=== PATIENT | male | born 2000 | race Caucasian/White ===

== ENCOUNTER 2024-04-30 13:32 | Outpatient (CLI) | payer MEDICAID, SELFPAY ==
--- NOTE | 2024-04-30 13:30 | RT.EKG_ITS ---
APPROVED REPORT Exam: Resting ECG Reason for Exam: Rapid heart rate Patient Location: O HR:116 bpm ECG Measurements Heart Rate 116 AXIS VT 98 P 84 QRSd 86 QRS 85 QT 294 T 59 QTc 409 Conclusion Sinus tachycardia...rate> 99 Normal Electrocardiogram
== END 2024-04-30 13:33 | disposition home or self-care (01) ==
LOC: DI.KIM 13:33
PROVIDERS: PCP Family Medicine; Visit Provider Family Medicine
DX: R00.0 Tachycardia, unspecified (principal)
CPT/HCPCS: 93010

== ENCOUNTER 2024-05-06 01:50 | Outpatient (RCR) | payer MEDICAID, SELFPAY ==
[2024-05-06] MEDS: Acetaminophen 325 MG TAB 650 MG PO (10:01)
[2024-05-06] MEDS: Normal Saline Flush 10 ML SYR IVP (10:02)
[2024-05-06] MEDS: Loratidine 10 MG TAB PO (10:02)
[2024-05-06 10:16] LABS: HCT 34.5 % (40.0-50.0); HGB 10.3 g/dL (13.5-17.5); MCH 24.1 pg (27.0-33.0); MCHC 29.9 % (32.0-36.0); MCV 81 fL (80-95); MPV 8.7 fL (8.0-11.0); Platelet Count 430 10^3/uL (130-400); RBC 4.27 10^6/uL (4.36-5.78); RDW 14.4 % (11.8-14.1); WBC 5.88 10^3/uL (4.4-10.8)
[2024-05-06 10:35] VITALS: BP 132/88; PULSE 116; RESP 18; TEMP 36.7; O2SAT 97
[2024-05-06 10:44] LABS: ALT 19 U/L (16-63); AST 15 U/L (15-37); Albumin 2.9 g/dL (3.4-5.0); Alkaline Phosphatase 64 U/L (46-116); Bilirubin, Direct 0.1 mg/dL (0.0-0.2); Bilirubin, Total 0.39 mg/dL (0.2-1.0); C-Reactive Protein 6.05 mg/dL (<or=0.5); Total Protein 8.6 g/dL (6.4-8.2)
[2024-05-06 10:50] VITALS: BP 116/75; PULSE 103; RESP 18; TEMP 37.1; O2SAT 100
[2024-05-06 11:05] VITALS: BP 121/75; PULSE 105; RESP 17; TEMP 36.9; O2SAT 100
[2024-05-06 11:20] VITALS: BP 111/69; PULSE 110; RESP 17; TEMP 36.9; O2SAT 100
[2024-05-06 11:50] VITALS: BP 129/75; PULSE 103; RESP 18; TEMP 36.7; O2SAT 99
[2024-05-10 01:50] LABS: Infliximab <1.0 mcg/mL
[2024-05-10 15:27] LABS: Infliximab Ab <20.0 U/mL (<50.0)
== END 2024-05-18 23:59 | disposition home or self-care (01) ==
LOC: INF 01:50
PROVIDERS: Internal Medicine Gastroenterology; PCP Family Medicine; Visit Provider Family Medicine
DX: K50.812 Crohn's disease of both small and large intestine with intestinal obstruction (principal)
CPT/HCPCS: 36415; 80076; 82397; 85027; 96365; 96366; 86140; Q5103

== ENCOUNTER 2024-06-06 02:26 | Outpatient (RCR) | payer MEDICAID, SELFPAY ==
[2024-05-19 00:15] VITALS: BP 129/75; PULSE 103; RESP 18; TEMP 36.7
[2024-06-06] VITALS (7 sets, daily range): BP systolic 102–119; BP diastolic 68–76; PULSE 102–120; RESP 16–18; TEMP 36.3–37.3; O2SAT 98–99
[2024-06-06] MEDS: Acetaminophen 325 MG TAB 650 MG PO (10:22)
[2024-06-06] MEDS: Loratidine 10 MG TAB PO (10:22)
[2024-06-06] MEDS: Normal Saline Flush 10 ML SYR IVP (10:22)
== END 2024-06-18 23:59 | disposition home or self-care (01) ==
LOC: INF 02:26
PROVIDERS: PCP Family Medicine; Visit Provider Family Medicine
DX: K50.812 Crohn's disease of both small and large intestine with intestinal obstruction (principal)
CPT/HCPCS: 96365; 96366; Q5103

== ENCOUNTER 2024-07-04 00:37 | Outpatient (RCR) | payer MEDICAID, SELFPAY ==
[2024-06-19 00:23] VITALS: BP 129/75; PULSE 103; RESP 18; TEMP 36.7
[2024-07-04] VITALS (7 sets, daily range): BP systolic 104–112; BP diastolic 67–75; PULSE 92–101; RESP 17; TEMP 36.6–37.2; O2SAT 97–98
[2024-07-04] MEDS: Acetaminophen 325 MG TAB 650 MG PO (09:53)
[2024-07-04] MEDS: Normal Saline Flush 10 ML SYR IVP (09:53)
[2024-07-04] MEDS: Loratidine 10 MG TAB PO (09:53)
== END 2024-07-19 23:59 | disposition home or self-care (01) ==
LOC: INF 00:37
PROVIDERS: PCP Family Medicine; Visit Provider Family Medicine
DX: K50.812 Crohn's disease of both small and large intestine with intestinal obstruction (principal)
CPT/HCPCS: 96365; 96366; Q5103

== ENCOUNTER 2024-08-01 03:05 | Outpatient (RCR) | payer MEDICAID, SELFPAY ==
[2024-08-01] VITALS (7 sets, daily range): BP systolic 105–119; BP diastolic 59–73; PULSE 97–128; RESP 17–18; TEMP 36.8–37.4; O2SAT 96–100
[2024-08-01] MEDS: Loratidine 10 MG TAB PO (10:02)
[2024-08-01] MEDS: Acetaminophen 325 MG TAB 650 MG PO (10:02)
[2024-08-01] MEDS: Normal Saline Flush 10 ML SYR IVP (10:31)
== END 2024-08-16 23:59 | disposition home or self-care (01) ==
LOC: INF 03:05
PROVIDERS: PCP Family Medicine; Visit Provider Family Medicine
DX: K50.812 Crohn's disease of both small and large intestine with intestinal obstruction (principal)
CPT/HCPCS: 96365; 96366; Q5103

== ENCOUNTER 2024-08-29 11:51 | Emergency (ER) | payer MEDICAID, SELFPAY ==
[2024-08-29] VITALS (33 sets, daily range): BP systolic 122–139; BP diastolic 51–81; PULSE 89–124; RESP 13–23; TEMP 36.6; O2SAT 98–100
--- NOTE | 2024-08-29 12:24 | ED.GENADUL_ITS ---
Discharge Plan Disposition Condition: Stable Discharge Details Chief Complaint: GenMedical Clinical Impression: Microcytic anemia, Crohn disease, Anemia requiring transfusions Primary Care Provider: Ramón Birmingham ED Provider: James Shah Home Meds and New Rx's Prescriptions: No Action folic acid 1 mg tablet 1 mg PO DAILY Patient Comments: Start date 12/21/2023 multivitamin [Multiple Vitamins] Tablet 1 tab PO DAILY Patient Comments: Start date 12/21/2023 ferrous sulfate 325 mg (65 mg iron) tablet 325 mg PO DAILY Patient Comments: Start Date 12/21/2023 infliximab 100 mg recon soln 562 mg IV Q8W Rx Instructions: administer over 2 hrs Discharge Instructions Instructions: Anemia Caused by Low Iron, Adult (DC) Additional Instructions: You were seen in the emergency department today for evaluation of low hemoglobin, likely due to your iron deficiency. In our department you do full physical examination performed, had no evidence of bleeding, and had laboratory studies that were otherwise quite reassuring. You received a transfusion of red blood cells, and given that you are feeling quite well it is safe for you to go home and continue your iron supplementation and follow-up with your primary care provider. They will want to recheck your labs, to ensure that your body is making more red blood cells as is appropriate. Reasons to come back to the emergency department include dizziness or loss of consciousness, shortness of breath, chest pain, or any other symptoms that cause you concern. Additionally if you identify source of bleeding such as in your stool or your vomit, your journeyman glazier may want to reschedule an endoscopy or colonoscopy to evaluate for the source. Please follow-up with your primary care provider in the next few days to discuss this visit and any symptoms that change, worsen, or persist. Thank you for allowing us to be part of your care. HPI General Mode of arrival: ambulatory . Date/Time Provider Initiated Documentation: 08/29/24 11:58 . Limitations to Documentation: no limitations . Information obtained by: patient and old records reviewed . HPI Narrative: HPI: This is a 23-year-old male patient with a past medical history significant for Crohn's disease who was sent from the infusion clinic for anemia. The cierra ent gets an influx of infusion every 8 weeks, had routine laboratory studies drawn which showed an anemia to 6.0, microcytic. For this reason he was sent to our emergency department for evaluation. The patient reports that he has had some generalized fatigue, but states that he has not had any specific concerning symptoms. Today he feels like he actually feels quite well, states that he notices if he skips breakfast he feels much worse. He states that he has not noted any significant bleeding, denies melena or black tarry stools. He does occasionally have scant droplets of blood on the toilet tissue when he wipes too hard, which he was told was likely due to his perianal skin tags. He has not had any hemoptysis, hematemesis, or nosebleeds. He states that he has a history of iron deficiency anemia, but has not been taking his iron supplementation. Exam: Gen: Awake and alert, in no apparent distress HEENT: Non-icteric sclera Neck: Supple Lungs: No apparent respiratory distress, normal respiratory effort. CV: Appears well perfused, heart with regular rate and rhythm, strong distal pulses Abdomen: Non-distended, soft, nontender MSK: Moves 4 extremities without apparent limitation in ROM Skin: Visualized skin without rashes, cyanosis. Neuro: Normal Gait, no obvious focal deficits or facial asymmetry. Speaks in full, clear sentences. Psych: Appropriate for situation. MDM: Surgery this is a 23-year-old male patient presenting for evaluation of anemia. Differential includes but is not limited to iron deficiency anemia especially in the setting of not taking his iron supplementation, the patient has no evidence of active bleeding, though in the history of his Crohn's disease I certainly considered GI bleed despite the patient's reassuringly history of physical examination. Considered coagulopathy, metabolic and electrolyte derangement. The patient will have laboratory studies were drawn to include CBC, CMP, magnesium, PT/INR, and type and screen. ED Course: Repeat hemoglobin noted to be 6.0, microcytic. No leukocytosis or thrombocytopenia, INR 1.1, metabolic panel reassuring, no evidence of kidney or liver dysfunction. A unit of PRBCs was ordered, and written consent obtained. The unit of PRBCs was transfused, without adverse event. A repeat H&H was ordered and the patient reports feeling well, without significant symptoms of fatigue, without dizz iness. Signed out to the oncoming provider prior to repeat hemoglobin and determination if further resuscitation is required. Will certainly require outpatient recheck of labs if discharged, and reinitiation of his iron. Ama Rosen MD Related Data Home Medications ?Medication ?Instructions ?Recorded ?Confirmed ferrous sulfate 325 mg (65 mg 325 mg PO DAILY Anemia 04/29/24 08/29/24 iron) tablet folic acid 1 mg tablet 1 mg PO DAILY Anemia 04/29/24 08/29/24 multivitamin (Multiple Vitamins 1 tab PO DAILY Crohn's Disease 04/29/24 08/29/24 tablet) infliximab 100 mg intravenous 562 mg IV Q8W 04/30/24 08/29/24 solution Previous Rx's ?Medication ?Instructions ?Recorded infliximab 100 mg intravenous 562 mg IV Q8W 04/30/24 solution Allergies Allergy/AdvReac Type Severity Reaction Status Date / Time No Known Allergies Allergy Verified 08/29/24 12:03 General Stated Complaint: GenMedical VIKRAM: 3 Course Vital Signs Vital signs: Vital Signs Temperature 36.6 C 08/29/24 11:58 Pulse 119 H 08/29/24 11:58 Respiratory Rate 20 08/29/24 11:58 Blood Pressure 131/78 08/29/24 11:58 Pulse Oximetry 99 08/29/24 11:58 Temperature 36.6 C 08/29/24 11:58 Pulse 119 H 08/29/24 11:58 Respiratory Rate 20 08/29/24 11:58 Blood Pressure 131/78 08/29/24 11:58 Blood Pressure Position Sitting 08/29/24 11:58 Pulse Oximetry 99 08/29/24 11:58 Oxygen Delivery Method Room Air 08/29/24 11:58 Oxygen Flow Rate 0 08/29/24 11:58 Medical Decision Making Quality:SDOH Health Related Social Needs: No Data to Display PFSH All Active Problems (Updated 08/29/24 @ 16:28 by Ama Rosen MD) Anemia requiring transfusions (Acute) Microcytic anemia (Acute) White coat syndrome without hypertension (Acute) Crohn disease (Chronic ~2023) . . .of both large and small intestine with intestinal obstruction. Managed by Gastro @ [facility] [place] Surgical History (Updated 08/13/24 @ 10:14 by Tiffanie Gomez RN) H/O colonoscopy (~05/10/24) [facility] [place] suspected Chrons disease of the small bowel. pathology pending. bx's- no evidence of dysplasia per final dx per [facility] report. Family History (Updated 04/11/24 @ 10:00 by Kourtney Farmer) Maternal Cousin Crohn disease Social History (Updated 04/11/24 @ 09:57 by Kourtney Farmer) Smoking/Tobacco Use Status: Never Second Hand Exposure: No Smoking risk assessment performed?: Yes Alcohol Intake: never Drug use: Never Substance use type: does not use Adopted: No Caregiver/Support person: No Foster care: No Household members: family Housing: house Number of Children: 0 number of grandchildren: 0 Communication Needs: None Education Level: high school Do you need help understanding health information?: Rarely Pets and animals: No Sexually active: No Do you think of yourself as: straight/heterosexual Current gender identity: male What is your relationship status?: never How often do you talk on the phone with friends or family?: once per week How often do you get together with friends or relatives?: never Do you belong to any clubs or organized social groups?: no Panel score (0-1 are the most socially isolated patients): 0 What type of physical activity do you participate in: none Duration: < 15 minutes/day Marlene/Yarsani: None Special marlene needs: No Seatbelt use: always Helmet use: Yes Drive intox or ride w/intox sanitation truck driver: No
[2024-08-29 12:39] LABS: Abs Immature Grans 0.03 10^3/uL (0.0-0.06); Absolute Basophil Count 0.02 10^3/uL (0.0-0.2); Absolute Eosinophil Count 0.05 10^3/uL (0.0-0.7); Absolute Lymphocyte Count 0.87 10^3/uL (1.2-3.4); Absolute Monocyte Count 0.49 10^3/uL (0.1-0.8); Absolute Neutrophil Count 3.21 10^3/uL (1.2-6.7); Basophils % 0.4 %; Eosinophils % 1.1 %; Immature Grans % 0.6 %; Lymphocytes % 18.6 %; MCHC 26.1 % (32.0-36.0); MCV 73 fL (80-95); MPV 8.7 fL (8.0-11.0); Monocytes % 10.5 %; Neutrophils % 68.8 %; Platelet Count 416 10^3/uL (130-400); RBC 3.15 10^6/uL (4.36-5.78); RDW 15.9 % (11.8-14.1); RDW-SD 41.3 fL; WBC 4.67 10^3/uL (4.4-10.8)
[2024-08-29 12:53] LABS: Diff Comment RBC Morph Reviewed
[2024-08-29 12:54] LABS: Anisocytosis 1+; Hypochromasia 2+; Microcytosis 1+; Polychromasia Present
[2024-08-29 12:59] LABS: ALT 11 U/L (16-63); AST 12 U/L (15-37); Albumin 2.6 g/dL (3.4-5.0); Alkaline Phosphatase 48 U/L (46-116); Anion Gap 9.2 mmol/L (3-11); BUN 16 mg/dL (7-18); Bilirubin, Total 0.5 mg/dL (0.2-1.0); CO2 25.8 mmol/L (21.0-32.0); CREATININE 0.8 mg/dL (0.70-1.30); Calcium 8.5 mg/dL (8.5-10.1); Chloride 104 mmol/L (98-107); Estimated GFR 129.13 (mL/min/1.73m2); Glucose 93 mg/dL (74-106); Magnesium 1.9 mg/dL; Sodium 139 mmol/L (136-145); Total Protein 7.9 g/dL (6.4-8.2)
[2024-08-29 13:06] LABS: INR 1.1 (0.9-1.1); Prothrombin Time 10.6 sec (9.1-11.1)
[2024-08-29 17:00] LABS: HCT 22.4 % (40.0-50.0)
[2024-08-29 17:03] LABS: HGB 6.3 g/dL (13.5-17.5)
--- NOTE | 2024-08-29 17:16 | W.EDPROG ---
Date of service: 08/29/24 Time of Service: 17:17 Medical Decision Making Patient's hemoglobin only increased to 6.3. He remains asymptomatic and has no complaints. I offered to administer another transfusion but he does not want to wait to have this and I feel this is reasonable given his hemodynamic stability and lack of symptoms. He was advised he should resume his iron supplements and he will follow-up with his PCP, return precautions given Quality:SDOH Health Related Social Needs: No Data to Display Discharge Plan Disposition Patient Disposition: Home Discharge Details Clinical Impression: Microcytic anemia, Crohn disease, Anemia requiring transfusions Primary Care Provider: Ramón Birmingham ED Provider: James Shah Home Meds and New Rx's Prescriptions: Continued folic acid 1 mg tablet 1 mg PO DAILY Patient Comments: Start date 12/21/2023 multivitamin [Multiple Vitamins] Tablet 1 tab PO DAILY Patient Comments: Start date 12/21/2023 ferrous sulfate 325 mg (65 mg iron) tablet 325 mg PO DAILY Patient Comments: Start Date 12/21/2023 infliximab 100 mg recon soln 562 mg IV Q8W Rx Instructions: administer over 2 hrs Discharge Instructions Instructions: Anemia Caused by Low Iron, Adult (DC) Additional Instructions: You were seen in the emergency department today for evaluation of low hemoglobin, likely due to your iron deficiency. In our department you do full physical examination performed, had no evidence of bleeding, and had laboratory studies that were otherwise quite reassuring. You received a transfusion of red blood cells, and given that you are feeling quite well it is safe for you to go home and continue your iron supplementation and follow-up with your primary care provider. They will want to recheck your labs, to ensure that your body is making more red blood cells as is appropriate. Reasons to come back to the emergency department include dizziness or loss of consciousness, shortness of breath, chest pain, or any other symptoms that cause you concern. Additionally if you identify source of bleeding such as in your stool or your vomit, your digital watch assembler may want to reschedule an endoscopy or colonoscopy to evaluate for the source. Please follow-up with your primary care provider in the next few days to discuss this visit and any symptoms that change, worsen, or persist. Thank you for allowing us to be part of your care.
== END 2024-08-29 17:22 | disposition home or self-care (01) ==
PROVIDERS: Emergency Medicine; Emergency Provider Emergency Medicine; PCP Family Medicine
DX: D50.9 Iron deficiency anemia, unspecified (principal); K50.90 Crohn's disease, unspecified, without complications
CPT/HCPCS: 00123; 36415; 36430; 80053; 86850; 86900; 86901; 86920; 99285; 83735; 85014; 85018; 85025; 85610; P9016

== ENCOUNTER 2024-09-09 13:45 | Outpatient (CLI) | payer MEDICAID, SELFPAY ==
[2024-09-09 12:28] LABS: Abs Immature Grans 0.02 10^3/uL (0.0-0.06); Absolute Basophil Count 0.03 10^3/uL (0.0-0.2); Absolute Eosinophil Count 0.02 10^3/uL (0.0-0.7); Absolute Lymphocyte Count 0.55 10^3/uL (1.2-3.4); Absolute Monocyte Count 0.56 10^3/uL (0.1-0.8); Absolute Neutrophil Count 2.31 10^3/uL (1.2-6.7); Basophils % 0.9 %; Eosinophils % 0.6 %; HCT 28.6 % (40.0-50.0); HGB 7.9 g/dL (13.5-17.5); Immature Grans % 0.6 %; Lymphocytes % 15.8 %; MCH 20.9 pg (27.0-33.0); MCHC 27.6 % (32.0-36.0); MCV 76 fL (80-95); MPV 8.3 fL (8.0-11.0); Neutrophils % 66.1 %; Platelet Count 356 10^3/uL (130-400); RBC 3.78 10^6/uL (4.36-5.78); RDW-SD 46.7 fL; WBC 3.49 10^3/uL (4.4-10.8)
[2024-09-09 12:31] LABS: ESR 33 mm/hr (0-15)
[2024-09-09 12:39] LABS: Diff Comment RBC Morph Reviewed; Hypochromasia 2+; Stomatocytes 2+
[2024-09-09 13:01] LABS: Iron 14 ug/dL (65-175); Total Iron Binding Capacity 351 ug/dL (250-450); Transferrin Sat 4 % (20-55)
[2024-09-09 13:08] LABS: ALT 17 U/L (16-63); AST 14 U/L (15-37); Albumin 2.6 g/dL (3.4-5.0); Alkaline Phosphatase 47 U/L (46-116); Anion Gap 8.1 mmol/L (3-11); BUN 21 mg/dL (7-18); Bilirubin, Total 0.6 mg/dL (0.2-1.0); C-Reactive Protein 7.37 mg/dL (<or=0.5); CO2 26.9 mmol/L (21.0-32.0); CREATININE 0.8 mg/dL (0.70-1.30); Calcium 8.8 mg/dL (8.5-10.1); Chloride 103 mmol/L (98-107); Estimated GFR 129.13 (mL/min/1.73m2); Glucose 93 mg/dL (74-106); Potassium 3.9 mmol/L (3.5-5.1); Sodium 138 mmol/L (136-145)
[2024-09-09 13:32] LABS: Ferritin 15 ng/mL (26-388)
== END 2024-09-09 13:46 | disposition home or self-care (01) ==
LOC: LBO 13:46
PROVIDERS: PCP Family Medicine; Visit Provider Nurse Practitioner Adult Health
DX: K50.812 Crohn's disease of both small and large intestine with intestinal obstruction (principal)
CPT/HCPCS: 36415; 80053; 85652; 82728; 83540; 83550; 85025; 86140

== ENCOUNTER 2024-09-13 03:23 | Outpatient (RCR) | payer MEDICAID, SELFPAY ==
[2024-08-29] MEDS: Acetaminophen 325 MG TAB 650 MG PO (09:52)
[2024-08-29] MEDS: Loratidine 10 MG TAB PO (09:53)
[2024-08-29 10:04] VITALS: BP 118/78; PULSE 117; RESP 19; TEMP 37; O2SAT 100
[2024-08-29] MEDS: Normal Saline Flush 5 ML SYR IVP (10:08)
[2024-08-29 10:30] VITALS: BP 112/72; PULSE 96; RESP 16; TEMP 36.7; O2SAT 100
[2024-08-29 10:47] VITALS: BP 111/67; PULSE 96; RESP 18; TEMP 36.8; O2SAT 99
[2024-08-29 10:53] LABS: HCT 22.3 % (40.0-50.0); MCH 19.9 pg (27.0-33.0); MCHC 26.9 % (32.0-36.0); MPV 9.1 fL (8.0-11.0); Platelet Count 480 10^3/uL (130-400); RBC 3.02 10^6/uL (4.36-5.78); RDW 16.1 % (11.8-14.1); RDW-SD 42.4 fL
[2024-08-29 11:11] VITALS: BP 107/68; PULSE 94; RESP 18; TEMP 36.7; O2SAT 97
[2024-08-29 11:16] LABS: ALT 15 U/L (16-63); AST 12 U/L (15-37); Albumin 2.5 g/dL (3.4-5.0); Alkaline Phosphatase 47 U/L (46-116); Bilirubin, Direct 0.1 mg/dL (0.0-0.2); Bilirubin, Total 0.4 mg/dL (0.2-1.0); C-Reactive Protein 3.72 mg/dL (<or=0.5); Total Protein 7.6 g/dL (6.4-8.2)
[2024-08-29 11:26] VITALS: BP 119/72; PULSE 120; RESP 19; TEMP 36.7; O2SAT 99
[2024-08-29 11:49] LABS: MCV 74 fL (80-95)
[2024-09-13] MEDS: Normal Saline Flush 5 ML SYR IVP (13:04)
[2024-09-13] MEDS: IRON SUCROSE COMPLEX 300 MG in Normal Saline 250 ML 176.667 MG IVPB (13:04)
== END 2024-09-16 23:59 | disposition home or self-care (01) ==
LOC: INF 03:23
PROVIDERS: Internal Medicine Gastroenterology; PCP Family Medicine; Visit Provider Family Medicine
DX: K50.812 Crohn's disease of both small and large intestine with intestinal obstruction; D50.9 Iron deficiency anemia, unspecified
CPT/HCPCS: 80076; 85027; 96365; 96366; 86140; J1756; Q5103

== ENCOUNTER 2024-09-25 00:50 | Outpatient (CLI) | payer MEDICAID, SELFPAY ==
--- NOTE | 2024-09-25 07:00 | DI.US_ITS ---
Exam(s) US SCROTUM EXAM: US SCROTUM CLINICAL HISTORY: testicular nodule,n50.89. TECHNIQUE: Scrotal ultrasound performed using grayscale, color-flow and spectral Doppler analysis. COMPARISON: CT CT ABDOMEN/PELVIS W IV CONTRAST from 01/19/2024 FINDINGS: Right testicle: 3.9 x 2.2 x 2.8 cm Echogenicity: Normal. Contour: Smooth. Mass: None seen. Microlithiasis: None. Hydrocele: None. Variocele: None. Hernia: No peristalsing bowel loop identified. Epididymis: There is a 0.3 cm spermatocele. Left testicle: 3.8 x 1.7 x 2.2 cm Echogenicity: Normal. Contour: Smooth. Mass: None seen. Microlithiasis: None. Hydrocele: None. Variocele: None. Hernia: No peristalsing bowel loop identified. Epididymis: There is a 0.3 cm spermatocele. DOPPLER: Color: Symmetric and uniform, no hyperemia. IMPRESSION: 1. No evidence of an intra testicular mass. The testicles are unremarkable. 2. Small bilateral epididymal head cysts. DATA REPOSITORY:
== END 2024-09-25 01:10 ==
LOC: DI 00:50
PROVIDERS: PCP Family Medicine; Visit Provider Emergency Medicine
DX: N50.89 Other specified disorders of the male genital organs (principal); N50.3 Cyst of epididymis
CPT/HCPCS: 76870

== ENCOUNTER 2024-09-26 08:30 | Outpatient (RCR) | payer MEDICAID, SELFPAY ==
[2024-09-20] MEDS: Normal Saline Flush 5 ML SYR IVP (13:17)
[2024-09-20] MEDS: IRON SUCROSE COMPLEX 300 MG in Normal Saline 250 ML 176.667 MG IVPB (13:17)
[2024-09-26] VITALS (7 sets, daily range): BP systolic 106–115; BP diastolic 61–74; PULSE 102–110; RESP 18–19; TEMP 36.3–37.2; O2SAT 98–100
[2024-09-26 08:49] LABS: HCT 33.2 % (40.0-50.0); HGB 9.1 g/dL (13.5-17.5); MCHC 27.4 % (32.0-36.0); MCV 79 fL (80-95); MPV 8.6 fL (8.0-11.0); Platelet Count 419 10^3/uL (130-400); RBC 4.23 10^6/uL (4.36-5.78); RDW-SD 57.1 fL; WBC 4.58 10^3/uL (4.4-10.8)
[2024-09-26] MEDS: Loratidine 10 MG TAB PO (08:50)
[2024-09-26] MEDS: Acetaminophen 325 MG TAB 650 MG PO (08:50)
[2024-09-26] MEDS: Normal Saline Flush 5 ML SYR IVP ×2 (08:51→14:32)
[2024-09-26 09:02] LABS: MCH 21.5 pg (27.0-33.0); RDW 20.5 % (11.8-14.1)
[2024-09-26 09:08] LABS: ALT 14 U/L (16-63); AST 10 U/L (15-37); Albumin 2.7 g/dL (3.4-5.0); Alkaline Phosphatase 52 U/L (46-116); Bilirubin, Direct 0.2 mg/dL (0.0-0.2); Bilirubin, Total 1.2 mg/dL (0.2-1.0); C-Reactive Protein 14.28 mg/dL (<or=0.5); Total Protein 8.6 g/dL (6.4-8.2)
[2024-09-26] MEDS: IRON SUCROSE COMPLEX 300 MG in Normal Saline 250 ML 176.667 MG IVPB (12:45)
[2024-10-02 01:35] LABS: Infliximab 2.6 mcg/mL
[2024-11-04 08:14] LABS: Infliximab Ab <20.0 U/mL (<50.0)
== END 2024-10-16 23:59 | disposition home or self-care (01) ==
LOC: INF 08:30
PROVIDERS: Internal Medicine Gastroenterology; PCP Family Medicine; Visit Provider Family Medicine
DX: D50.9 Iron deficiency anemia, unspecified (principal); K50.812 Crohn's disease of both small and large intestine with intestinal obstruction
CPT/HCPCS: 36415; 80076; 82397; 85027; 96365; 96366; 86140; J1756; Q5103

== ENCOUNTER 2024-09-30 03:06 | Outpatient (CLI) | payer MEDICAID, SELFPAY ==
[2024-09-30 12:38] LABS: Abs Immature Grans 0.05 10^3/uL (0.0-0.06); Absolute Basophil Count 0.03 10^3/uL (0.0-0.2); Absolute Eosinophil Count 0.05 10^3/uL (0.0-0.7); Absolute Lymphocyte Count 0.81 10^3/uL (1.2-3.4); Absolute Monocyte Count 0.34 10^3/uL (0.1-0.8); Absolute Neutrophil Count 3.41 10^3/uL (1.2-6.7); Basophils % 0.6 %; Eosinophils % 1.1 %; HGB 8.7 g/dL (13.5-17.5); Immature Grans % 1.1 %; Lymphocytes % 17.3 %; MCH 22.3 pg (27.0-33.0); MCHC 28.1 % (32.0-36.0); MCV 80 fL (80-95); MPV 8.5 fL (8.0-11.0); Monocytes % 7.2 %; Neutrophils % 72.7 %; Platelet Count 473 10^3/uL (130-400); RDW-SD 55.8 fL; WBC 4.69 10^3/uL (4.4-10.8)
[2024-09-30 13:02] LABS: Anisocytosis 2+; Diff Comment RBC Morph Reviewed
[2024-09-30 13:08] LABS: Iron 35 ug/dL (65-175); Total Iron Binding Capacity 313 ug/dL (250-450); Transferrin Sat 11 % (20-55)
[2024-09-30 13:09] LABS: Ferritin 357 ng/mL (26-388)
== END 2024-09-30 03:07 | disposition home or self-care (01) ==
PROVIDERS: Emergency Medicine; PCP Family Medicine; Visit Provider Family Medicine
DX: D64.9 Anemia, unspecified (principal)
CPT/HCPCS: 36415; 82728; 83540; 83550; 85025

== ENCOUNTER 2024-10-04 21:59 | Outpatient (REF) | payer MEDICAID, SELFPAY | END 2024-10-04 22:00 | disposition home or self-care (01) | LOC: LBN 21:59 | PROVIDERS: PCP Family Medicine; Visit Provider Physician Assistant Medical | DX: L02.91 Cutaneous abscess, unspecified (principal) | CPT/HCPCS: 87077; 87070; 87186; 87205 ==

== ENCOUNTER 2024-10-24 01:26 | Outpatient (RCR) | payer MEDICAID, SELFPAY ==
[2024-10-24] VITALS (7 sets, daily range): BP systolic 98–114; BP diastolic 62–72; PULSE 81–103; RESP 18–19; TEMP 36.2–36.9; O2SAT 97–100
[2024-10-24] MEDS: Acetaminophen 325 MG TAB 650 MG PO (10:02)
[2024-10-24] MEDS: Loratidine 10 MG TAB PO (10:02)
[2024-10-24] MEDS: Normal Saline Flush 5 ML SYR IVP (10:03)
[2024-10-24 10:20] LABS: HCT 33.2 % (40.0-50.0); HGB 9.6 g/dL (13.5-17.5); MCH 22.6 pg (27.0-33.0); MCHC 28.9 % (32.0-36.0); MCV 78 fL (80-95); MPV 8.5 fL (8.0-11.0); Platelet Count 338 10^3/uL (130-400); RBC 4.25 10^6/uL (4.36-5.78); RDW 18.4 % (11.8-14.1); RDW-SD 52.4 fL; WBC 4.94 10^3/uL (4.4-10.8)
[2024-10-24 10:37] LABS: ALT 16 U/L (16-63); AST 13 U/L (15-37); Albumin 2.7 g/dL (3.4-5.0); Alkaline Phosphatase 52 U/L (46-116); Bilirubin, Direct 0.1 mg/dL (0.0-0.2); Bilirubin, Total 0.5 mg/dL (0.2-1.0); C-Reactive Protein 6.87 mg/dL (<or=0.5); Total Protein 8.4 g/dL (6.4-8.2)
== END 2024-11-16 23:59 | disposition home or self-care (01) ==
LOC: INF 01:26
PROVIDERS: Internal Medicine Gastroenterology; PCP Family Medicine; Visit Provider Family Medicine
DX: K50.812 Crohn's disease of both small and large intestine with intestinal obstruction (principal)
CPT/HCPCS: 36415; 80076; 85027; 96365; 96366; 86140; Q5103

== ENCOUNTER 2024-11-21 03:16 | Outpatient (RCR) | payer MEDICAID, SELFPAY ==
[2024-11-21] VITALS (7 sets, daily range): BP systolic 103–111; BP diastolic 60–77; PULSE 72–97; RESP 17–19; TEMP 36–37.2; O2SAT 95–100
[2024-11-21] MEDS: Acetaminophen 325 MG TAB 650 MG PO (09:52)
[2024-11-21] MEDS: Normal Saline Flush 10 ML SYR IVP (09:52)
[2024-11-21] MEDS: Loratidine 10 MG TAB PO (09:52)
== END 2024-12-16 23:59 | disposition home or self-care (01) ==
LOC: INF 03:16
PROVIDERS: PCP Family Medicine; Visit Provider Family Medicine
DX: K50.812 Crohn's disease of both small and large intestine with intestinal obstruction (principal)
CPT/HCPCS: 96365; 96366; Q5103

== ENCOUNTER 2024-11-26 14:03 | Outpatient (CLI) | payer MEDICAID, SELFPAY ==
[2024-11-26 14:09] LABS: Abs Immature Grans 0.01 10^3/uL (0.0-0.06); Absolute Basophil Count 0.03 10^3/uL (0.0-0.2); Absolute Eosinophil Count 0.09 10^3/uL (0.0-0.7); Absolute Lymphocyte Count 1.13 10^3/uL (1.2-3.4); Absolute Monocyte Count 0.61 10^3/uL (0.1-0.8); Absolute Neutrophil Count 4.38 10^3/uL (1.2-6.7); Basophils % 0.5 %; Eosinophils % 1.4 %; HCT 38.9 % (40.0-50.0); HGB 11.2 g/dL (13.5-17.5); Immature Grans % 0.2 %; Lymphocytes % 18.1 %; MCH 22.6 pg (27.0-33.0); MCHC 28.8 % (32.0-36.0); MCV 78 fL (80-95); MPV 8.6 fL (8.0-11.0); Monocytes % 9.8 %; Platelet Count 444 10^3/uL (130-400); RBC 4.96 10^6/uL (4.36-5.78); RDW 15.6 % (11.8-14.1); WBC 6.25 10^3/uL (4.4-10.8)
[2024-11-26 14:40] LABS: Iron 24 ug/dL (65-175); Total Iron Binding Capacity 344 ug/dL (250-450); Transferrin Sat 7 % (20-55)
[2024-11-26 14:43] LABS: ALT 20 U/L (16-63); AST 14 U/L (15-37); Albumin 3.2 g/dL (3.4-5.0); Alkaline Phosphatase 65 U/L (46-116); Anion Gap 6.2 mmol/L (3-11); BUN 20 mg/dL (7-18); Bilirubin, Total 0.4 mg/dL (0.2-1.0); C-Reactive Protein 3.78 mg/dL (<or=0.5); CO2 29.8 mmol/L (21.0-32.0); CREATININE 0.7 mg/dL (0.70-1.30); Calcium 9.1 mg/dL (8.5-10.1); Chloride 102 mmol/L (98-107); Estimated GFR 133.61 (mL/min/1.73m2); Glucose 80 mg/dL (74-106); Potassium 4.2 mmol/L (3.5-5.1); Sodium 138 mmol/L (136-145); Total Protein 9.1 g/dL (6.4-8.2)
[2024-11-26 15:19] LABS: Ferritin 45 ng/mL (26-388); Vitamin D 25 Total 19 ng/mL (30-100)
[2024-12-04 00:18] LABS: Infliximab 90 mcg/mL
== END 2024-11-26 14:04 | disposition home or self-care (01) ==
LOC: LBO 14:04
PROVIDERS: PCP Family Medicine; Visit Provider Internal Medicine Gastroenterology
DX: K50.812 Crohn's disease of both small and large intestine with intestinal obstruction (principal); Z79.620 Long term (current) use of immunosuppressive biologic
CPT/HCPCS: 36415; 80053; 82306; 82397; 82728; 83540; 83550; 85025; 86140

== ENCOUNTER 2025-01-13 16:22 | Outpatient (CLI) | payer MEDICAID, SELFPAY ==
[2025-01-13 16:32] LABS: Abs Immature Grans 0.01 10^3/uL (0.0-0.06); HCT 40.2 % (40.0-50.0); HGB 12.0 g/dL (13.5-17.5); Immature Grans % 0.2 %; MCH 25.1 pg (27.0-33.0); MCHC 29.9 % (32.0-36.0); MCV 84 fL (80-95); MPV 9.0 fL (8.0-11.0); Platelet Count 260 10^3/uL (130-400); RBC 4.79 10^6/uL (4.36-5.78); RDW 20.1 % (11.8-14.1); RDW-SD 60.6 fL; WBC 4.45 10^3/uL (4.4-10.8)
[2025-01-13 16:55] LABS: Anisocytosis 1+
[2025-01-13 17:29] LABS: Iron 78 ug/dL (65-175); Total Iron Binding Capacity 463 ug/dL (250-450); Transferrin Sat 17 % (20-55)
== END 2025-01-13 16:23 | disposition home or self-care (01) ==
LOC: LBO 16:22
PROVIDERS: PCP Family Medicine; Visit Provider Family Medicine
DX: D50.9 Iron deficiency anemia, unspecified (principal)
CPT/HCPCS: 36415; 83540; 83550; 85025

== ENCOUNTER 2025-01-16 02:23 | Outpatient (CLI) | payer MEDICAID, SELFPAY ==
[2025-01-16] MEDS: Loratidine 10 MG TAB PO (09:55)
[2025-01-16] MEDS: Acetaminophen 325 MG TAB 650 MG PO (09:55)
[2025-01-16] MEDS: Normal Saline Flush 10 ML SYR IVP (09:56)
[2025-01-16] MEDS: INFLIXIMAB DYYB IVPB (10:16)
[2025-01-16] MEDS: NORMAL SALINE IVPB (10:16)
[2025-01-16 10:40] VITALS: BP 129/76; PULSE 75; RESP 20; TEMP 36.9; O2SAT 99
[2025-01-16 10:57] VITALS: BP 110/72; PULSE 81; RESP 20; TEMP 36.6; O2SAT 98
[2025-01-16 11:11] VITALS: BP 126/67; PULSE 75; RESP 20; TEMP 36.6; O2SAT 99
[2025-01-16 11:56] VITALS: BP 115/75; PULSE 77; RESP 20; TEMP 36.6; O2SAT 95
[2025-01-16 12:30] VITALS: BP 123/75; PULSE 77; RESP 20; TEMP 36.7; O2SAT 98
[2025-01-22 02:30] LABS: Infliximab 1.1 mcg/mL
[2025-01-22 14:26] LABS: Infliximab Ab <20.0 U/mL (<50.0)
== END 2025-01-16 02:24 | disposition home or self-care (01) ==
LOC: INF 02:24
PROVIDERS: Internal Medicine Gastroenterology; PCP Family Medicine; Visit Provider Family Medicine
DX: K50.812 Crohn's disease of both small and large intestine with intestinal obstruction (principal)
CPT/HCPCS: 36415; 82397; 96365; 96366; Q5103

== ENCOUNTER 2025-02-13 03:55 | Outpatient (CLI) | payer MEDICAID, SELFPAY ==
[2025-02-13] MEDS: Acetaminophen 325 MG TAB 650 MG PO (10:00)
[2025-02-13] MEDS: Loratidine 10 MG TAB PO (10:00)
[2025-02-13] MEDS: Normal Saline Flush 10 ML SYR IVP (10:00)
[2025-02-13] MEDS: NORMAL SALINE IVPB (10:27)
[2025-02-13] MEDS: INFLIXIMAB DYYB IVPB (10:27)
[2025-02-13 10:29] LABS: HCT 45.6 % (40.0-50.0); HGB 14.9 g/dL (13.5-17.5); MCH 27.1 pg (27.0-33.0); MCHC 32.7 % (32.0-36.0); MCV 83 fL (80-95); MPV 9.0 fL (8.0-11.0); Platelet Count 255 10^3/uL (130-400); RBC 5.49 10^6/uL (4.36-5.78); RDW 16.5 % (11.8-14.1); RDW-SD 50.4 fL; WBC 4.36 10^3/uL (4.4-10.8)
[2025-02-13 10:32] VITALS: BP 121/84; PULSE 74; RESP 18; TEMP 37.4; O2SAT 99
[2025-02-13 10:47] VITALS: BP 120/76; PULSE 77; RESP 18; TEMP 37.3; O2SAT 99
[2025-02-13 10:49] LABS: ALT 102 U/L (16-63); AST 37 U/L (15-37); Albumin 4.3 g/dL (3.4-5.0); Alkaline Phosphatase 99 U/L (46-116); Bilirubin, Direct 0.3 mg/dL (0.0-0.2); Bilirubin, Total 1.9 mg/dL (0.2-1.0); Total Protein 9.4 g/dL (6.4-8.2)
[2025-02-13 10:50] LABS: C-Reactive Protein < 0.50 mg/dL (<or=0.5)
[2025-02-13 11:02] VITALS: BP 117/75; PULSE 83; RESP 18; TEMP 37.1; O2SAT 100
[2025-02-13 11:32] VITALS: BP 126/76; PULSE 69; RESP 18; TEMP 36.9; O2SAT 100
[2025-02-13 22:48] LABS: Hep B Core Antibody Negative (Negative)
[2025-02-13 23:44] LABS: HBs Antibody, Quant 8.0 mIU/mL (See Note); Hepatitis B Surface Ab Negative (See Note)
[2025-02-17 13:17] LABS: TB Interpretation Negative (Negative); TB1 Ag minus Nil 0.05 IU/mL; TB2 Ag minus Nil 0.01 IU/mL
[2025-02-25 09:09] LABS: Infliximab 27 mcg/mL
== END 2025-02-13 03:56 | disposition home or self-care (01) ==
LOC: INF 03:55
PROVIDERS: Internal Medicine Gastroenterology; PCP Family Medicine; Visit Provider Family Medicine
DX: K50.812 Crohn's disease of both small and large intestine with intestinal obstruction (principal)
CPT/HCPCS: 36415; 80076; 82397; 85027; 86704; 86706; 87340; 96365; 86140; 86480; Q5103

== ENCOUNTER 2025-03-01 21:37 | Inpatient (IN) | payer MEDICAID, SELFPAY ==
[2025-03-01] VITALS (20 sets, daily range): BP systolic 130–167; BP diastolic 97–111; PULSE 82–109; RESP 15–27; TEMP 37.3; O2SAT 95–100
--- NOTE | 2025-03-01 21:45 | RT.EKG_ITS ---
APPROVED REPORT Exam: Resting ECG Reason for Exam: OD Patient Location: E HR:85 bpm ECG Measurements Heart Rate 85 AXIS UT 121 P 76 QRSd 89 QRS 82 QT 340 T 63 QTc 405 Conclusion Sinus rhythm...normal P axis, V-rate 60- 99 No STEMI
[2025-03-01 21:57] LABS: Abs Immature Grans 0.02 10^3/uL (0.0-0.06); HCT 46.8 % (40.0-50.0); HGB 15.7 g/dL (13.5-17.5); Immature Grans % 0.3 %; MCH 27.4 pg (27.0-33.0); MCHC 33.5 % (32.0-36.0); MCV 82 fL (80-95); MPV 8.7 fL (8.0-11.0); Platelet Count 266 10^3/uL (130-400); RBC 5.74 10^6/uL (4.36-5.78); RDW 15.2 % (11.8-14.1); RDW-SD 45.1 fL; WBC 5.90 10^3/uL (4.4-10.8)
--- NOTE | 2025-03-01 22:04 | W.ED.GENAD ---
Discharge Plan Disposition Patient Disposition: Admit to [facility] Discharge Details Clinical Impression: Intentional overdose Primary Care Provider: Ramón Birmingham ED Provider: Charles Chacon Home Meds and New Rx's Prescriptions: No Action folic acid 1 mg tablet 1 mg PO DAILY Patient Comments: Start date 12/21/2023 multivitamin [Multiple Vitamins] Tablet 1 tab PO DAILY Patient Comments: Start date 12/21/2023 infliximab 100 mg recon soln 900 mg IV Q4W acetaminophen 325 mg tablet See Rx Instructions PO .COMPLEX PRN Rx Instructions: 3 tablets every 6 hours orally PRN; loperamide 2 mg capsule 2 mg PO TID duloxetine 40 mg capsule,delayed release(DR/EC) 40 mg PO .nightly ferrous sulfate 325 mg (65 mg iron) tablet 325 mg PO .QOD Patient Comments: Per [facility] [place] Ensure High Protein Liquid See Rx Instructions PO QID Rx Instructions: 237mL orally four times a day; HPI General Date/Time Provider Initiated Documentation: 03/01/25 21:51. HPI Narrative: MDM/Narrative: 24-year-old male with depression and Crohn's disease, status post ileostomy, presents after intentional Tylenol overdose. Ingested 42 tablets of 500 mg acetaminophen (21 g) at 1500 hours. Developed significant nausea and vomiting. Differential Diagnosis: - Significant liver injury: High concern due to acetaminophen overdose. Initiated N-acetylcysteine protocol IV. Blood and urine labs including urine tox, acetaminophen level, salicylate, and coags. - Coingestions: Denied by patient. No further action. - Pain, fever, illicit drug or alcohol use: Denied by patient. No further action. ED Course: - N-acetylcysteine protocol IV initiated. - Blood and urine labs obtained including urine tox, acetaminophen level, salicylate, and coags. 22:01 Bilateral IVs established, N-acetylcysteine 15 g IV ordered, blood work urine ordered. 22:10 Case discussed with Poison Control who is in agreement with empric NAC and that charcoal would not be beneficial. 23: 05 Results reviewed, Tylenol level 94 at 7 hours postingestion which is a treatable level. Case discussed with poison control is in agreement NAC and admission. Case discussed with Dr. Parr while hospitalist is in agreement with the plan for admission Disposition: - Transfer to [facility] for further care. This document was created with assistance from [employer] Co-Education Professor. The patient consented to its use. HPI: The patient is a 24-year-old male with a medical history significant for depression and Crohn's disease, status post ileostomy, who presents following an intentional overdose of acetaminophen. At 1500 hours, the patient ingested 42 tablets of 500 mg acetaminophen, totaling 21 grams. Subsequently, he has experienced pronounced nausea and multiple episodes of emesis. The patient denies any coingestions, pain, pyrexia, use of illicit drugs or alcohol, or other new symptoms. ROS: Negative besides as mentioned above Exam: Vital signs: Reviewed. General Appearance: Alert and oriented. No acute distress. HEENT: NCAT, EOMI, not icteric. External ears normal. No rhinorrhea. Moist mucous membranes. Neck: Supple, full range of motion, no observable masses, No meningeal sign. Respiratory: No Respiratory distress. No tachypnea. Cardiovascular: RRR, no edema. Gastrointestinal: Ostomy bag with stool present. Otherwise, normal. Back: No midline tenderness to palpation or palpable step-offs of the C/T/L spine. Skin: Warm and dry, no rash. Neurological: Normal Gait, Grossly intact. Psychiatric: Appropriate for situation. Labs: Laboratory Tests Range/Units 03/01/25 21:46 WBC (4.4-10.8) 10^3/uL 5.90 RBC (4.36-5.78) 10^6/uL 5.74 Hgb (13.5-17.5) g/dL 15.7 Hct (40.0-50.0) % 46.8 MCV (80-95) fL 82 MCH (27.0-33.0) pg 27.4 MCHC (32.0-36.0) % 33.5 RDW (11.8-14.1) % 15.2 H Plt Count (130-400) 10^3/uL 266 MPV (8.0-11.0) fL 8.7 Immature Gran % % 0.3 Neutrophils % % 74.9 Lymphocytes % % 20.2 Monocytes % % 4.1 Eosinophils % % 0.2 Basophils % % 0.3 Nucleated RBC % (0.0-0.3) % 0.0 Absolute Neutrophils (1.2-6.7) 10^3/uL 4.42 Absolute Lymphocytes (1.2-3.4) 10^3/uL 1.19 L Absolute Monocytes (0.1-0.8) 10^3/uL 0.24 Absolute Eosinophils (0.0-0.7) 10^3/uL 0.01 Absolute Basophils (0.0-0.2) 10^3/uL 0.02 PT (9.1-11.1) sec 10.2 INR (0.9-1.1) 1.0 APTT (20.6-30.2) sec 23.6 Sodium (136-145) mmol/L 139 Potassium (3.5-5.1) mmol/L 3.6 Chloride (98-107) mmol/L 102 Carbon Dioxide (21.0-32.0) mmol/L 22.8 Anion Gap (3-11) mmol/L 14.2 H BUN (7-18) mg/dL 18 Creatinine (0.70-1.30) mg/dL 0.9 Est GFR (CKD-EPI 2020) (mL/min/1.73m2) 123.84 Glucose (74-106) mg/dL 130 H Calcium (8.5-10.1) mg/dL 9.3 Total Bilirubin (0.2-1.0) mg/dL 2.1 H AST (15-37) U/L 127 H ALT (16-63) U/L 208 H Alkaline Phosphatase (46-116) U/L 115 Total Protein (6.4-8.2) g/dL 9.5 H Albumin (3.4-5.0) g/dL 4.6 Lipase (<78) U/L 20 Salicylates (<2.8) mg/dL < 2.8 Acetaminophen (10-30) ug/mL 94 H Ethyl Alcohol (<10) mg/dL < 3.0 Related Data Home Medications ?Medication ?Instructions ?Recorded ?Confirmed folic acid 1 mg tablet 1 mg PO DAILY Anemia 04/29/24 01/14/25 multivitamin (Multiple Vitamins 1 tab PO DAILY Crohn's Disease 04/29/24 01/14/25 tablet) infliximab 100 mg intravenous 900 mg IV Q4W 10/17/24 01/14/25 solution acetaminophen 325 mg tablet See Rx Instructions PO .COMPLEX PRN 12/18/24 01/14/25 duloxetine 40 mg capsule,delayed 40 mg PO .nightly 12/18/24 01/14/25 release ferrous sulfate 325 mg (65 mg 325 mg PO .QOD Anemia 12/18/24 01/14/25 iron) tablet food supplemt, lactose-reduced See Rx Instructions PO QID 12/18/24 01/14/25 (Ensure High Protein oral liquid) loperamide 2 mg capsule 2 mg PO TID 12/18/24 01/14/25 Allergies Allergy/AdvReac Type Severity Reaction Status Date / Time No Known Allergies Allergy Verified 01/14/25 09:39 General Stated Complaint: OD/Poison VIKRAM: 2 Course Vital Signs Vital signs: Vital Signs Temperature 37.3 C 03/01/25 21:37 Pulse 109 H 03/01/25 21:37 Respiratory Rate 16 03/01/25 21:37 Blood Pressure 130/97 H 03/01/25 21:37 Pulse Oximetry 100 03/01/25 21:37 Temperature 37.3 C 03/01/25 21:37 Pulse 109 H 03/01/25 21:37 Respiratory Rate 16 03/01/25 21:37 Blood Pressure 130/97 H 03/01/25 21:37 Pulse Oximetry 100 03/01/25 21:37 Pain Level 0 03/01/25 21:37 Lab/Test Results Lab/Test Results: Laboratory Tests Range/Units 03/01/25 21:46 WBC (4.4-10.8) 10^3/uL 5.90 RBC (4.36-5.78) 10^6/uL 5.74 Hgb (13.5-17.5) g/dL 15.7 Hct (40.0-50.0) % 46.8 MCV (80-95) fL 82 MCH (27.0-33.0) pg 27.4 MCHC (32.0-36.0) % 33.5 RDW (11.8-14.1) % 15.2 H Plt Count (130-400) 10^3/uL 266 MPV (8.0-11.0) fL 8.7 Immature Gran % % 0.3 Neutrophils % % 74.9 Lymphocytes % % 20.2 Monocytes % % 4.1 Eosinophils % % 0.2 Basophils % % 0.3 Nucleated RBC % (0.0-0.3) % 0.0 Absolute Neutrophils (1.2-6.7) 10^3/uL 4.42 Absolute Lymphocytes (1.2-3.4) 10^3/uL 1.19 L Absolute Monocytes (0.1-0.8) 10^3/uL 0.24 Absolute Eosinophils (0.0-0.7) 10^3/uL 0.01 Absolute Basophils (0.0-0.2) 10^3/uL 0.02 PFSH All Active Problems (Updated 03/01/25 @ 23:11 by Charles Chacon MD) Intentional overdose (Acute) Intentional acetaminophen overdose (Acute) Depression (Chronic) Moderate protein-calorie malnutrition (Acute) Ureteral stent present (Acute) Placed at [facility] [place] 12/10/2024 S/P partial colectomy (Acute) performed at [facility] [place] on 12/10/[address] Purvi Keith with coloproctostomy Ileostomy status (Acute) at [facility] [place] performed by Dr. Purvi Keith on 12/10/2024 Iron (Fe) deficiency anemia (Chronic) Internal hemorrhoids (Acute ~08/2024) [facility] [place] Colonoscopy Hiatal hernia (Chronic ~08/2024) small [facility] [place] EGD White coat syndrome without hypertension (Acute) Crohn disease (Chronic ~2023) . . .of both large and small intestine with intestinal obstruction. Managed by Gastro @ [facility] [place] Medical History Oropeza angioma (~11/2024) Multiple benign nevi (~11/2024) Surgical History H/O esophagogastroduodenoscopy (09/16/24) [facility] [place] Dr Tian. Sm hiatal hernia. Bx to f/u Celiac. 09/26/24-per [facility] [place] doc letter to pt-bx's of the small intestine were normal; there was no evidence of celiac disease present. H/O colonoscopy (~05/10/24) [facility] [place] for suspected Chrons disease of the small bowel. pathology pending. bx's- no evidence of dysplasia per final dx per [facility] [place] report. 09/16/24-[facility] [place]-Dr Tian-no specimens colllected-see report Family History Maternal Cousin Crohn disease Social History Smoking/Tobacco Use Status: Never Second Hand Exposure: No Smoking risk assessment performed?: Yes Alcohol Intake: never Drug use: Never Substance use type: does not use Adopted: No Caregiver/Support person: No Foster care: No Household members: family Housing: house Number of Children: 0 number of grandchildren: 0 Communication Needs: None Education Level: high school Do you need help understanding health information?: Rarely Pets and animals: No Sexually active: No Do you think of yourself as: straight/heterosexual Current gender identity: male What is your relationship status?: never How often do you talk on the phone with friends or family?: once per week How often do you get together with friends or relatives?: never Do you belong to any clubs or organized social groups?: no Panel score (0-1 are the most socially isolated patients): 0 What type of physical activity do you participate in: none Duration: < 15 minutes/day Marlene/Worship: None Special marlene needs: No Seatbelt use: always Helmet use: Yes Drive intox or ride w/intox 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
[2025-03-01 22:16] LABS: INR 1.0 (0.9-1.1); PTT Activated 23.6 sec (20.6-30.2); Prothrombin Time 10.2 sec (9.1-11.1)
[2025-03-01 22:18] LABS: ALT 208 U/L (16-63); AST 127 U/L (15-37); Albumin 4.6 g/dL (3.4-5.0); Alkaline Phosphatase 115 U/L (46-116); Anion Gap 14.2 mmol/L (3-11); BUN 18 mg/dL (7-18); Bilirubin, Total 2.1 mg/dL (0.2-1.0); CO2 22.8 mmol/L (21.0-32.0); Calcium 9.3 mg/dL (8.5-10.1); Chloride 102 mmol/L (98-107); Estimated GFR 123.84 (mL/min/1.73m2); Glucose 130 mg/dL (74-106); Lipase 20 U/L (<78); Potassium 3.6 mmol/L (3.5-5.1); Sodium 139 mmol/L (136-145); Total Protein 9.5 g/dL (6.4-8.2)
[2025-03-01 22:21] LABS: Acetaminophen 94 ug/mL (10-30)
[2025-03-01 22:24] LABS: Salicylate < 2.8 mg/dL (<2.8)
[2025-03-01] MEDS: Ondansetron 4 MG/2 ML VIAL IVP (22:26)
[2025-03-01] MEDS: Normal Saline 1,000 ML 1000 ML IV (22:40)
--- NOTE | 2025-03-01 23:02 | HPE_ITS ---
Date of service: 03/01/25 Time of Service: 23:02 Assessment and Plan Assessment and plan (1) Intentional acetaminophen overdose: Start date: 03/01/25 Status: Acute Assessment and plan: This is a 24-year-old gentleman with depression worsening recently with associated chronic disease with Crohn disease and having a diverting ileostomy which is stressful. He is about to have his ileostomy reversed and he states that he will be nondisabled and he is fearful of returning to the workforce. 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 He notes that this would be difficult to accomplish without financial support. He is estranged from his father with his parents unfortunately was 19 years old and he lives with his mother whom he calls a good person. He is going to have increased counseling and therapy and actually is asking for more help. He did intentionally take a large dose of acetaminophen knowing that he could be rescued if he came to the hospital. He presently is not having suicidal ideation. He will be admitted for Mucomyst treatment IV per protocol with lab trending as appropriate. Prognosis appears good. He is a full code. (2) Depression: Status: Chronic Assessment and plan: Continue outpatient medical therapy and this will need to be addressed and adjusted as an outpatient. He may qualify for inpatient therapy at this time and he is open to that possibility. (3) Crohn disease: Status: Chronic Assessment and plan: Status post left hemicolectomy with diverting ileostomy with plans to reanastomose his intestine and not have a ileostomy. This actually is make him anxious because then he would not be disabled and able to return to the workforce. He will follow-up with [facility] gastroenterology. (4) Iron (Fe) deficiency anemia: Status: Chronic Assessment and plan: Continue iron supplement. This most likely is from chronic loss with his Crohn's disease. The patient is thin and possibly malnourished as well. History of Present Illness History of Present Illness Chief Complaint: Intentional overdose of acetaminophen with suicidal ideation. Narrative: This is a 50-year-old male patient who was diagnosed with Crohn disease within the last 2 years now stabilized status post left hemicolectomy with diverting ileostomy to be reversed this fall. He does receive scheduled infusion therapy monthly at this institution and is followed by [facility]. He presented to the ED after taking 21 g of Tylenol over a 2-hour period starting at 1 PM the day of presentation. Patient took the Tylenol intentionally after researching modes of and did so know that he could intervene if he changed his mind. He has been depressed and hopeless recently approaching a time where he can return to the workforce during a job at he would not feel satisfied or completed performing. 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 He is living with his mother. He does feel like a failure. He feels that his counselor is not supportive and the psychiatrist is not finding the right medication. His Crohn's has stressed his life with some symptoms for several years but diagnosed within the last couple of years with more aggressive treatment which is controlling his disease but his previous untreated disease did cause some scarring and blockage prompting his hemicolectomy. He is fearful of reentering the nondisabled life. He is asking for support. He presently is not having suicidal ideation. The patient's lab in the ED did reveal an elevated acetaminophen level at the lower end of the scale indicating treatment. He was initiated on the protocol for Mucomyst IV with poison control called and following up. He also had a sitter because of his suicide attempt. Mental health will be seeing the patient once he is medically cleared. Of note, his liver function test was slightly elevated prior to his overdose and now AST and ALT are elevated. Will follow the protocol for cessation of Mucomyst to avoid hepatic failure. Patient was admitted to ICU for close monitoring. Labs to be done at least every 12 hours. Poison control will remain engaged. The patient is a full code. Review of Systems Narrative: 13 point review of systems otherwise unrevealing or stable. [facility] All Active Problems Intentional overdose (Acute) Intentional acetaminophen overdose (Acute) Depression (Chronic) Moderate protein-calorie malnutrition (Acute) Ureteral stent present (Acute) Placed at [facility] 12/10/2024 S/P partial colectomy (Acute) performed at [facility] on 12/10/[address] Purvi Keith with coloproctostomy Ileostomy status (Acute) at [facility] performed by Dr. Purvi Keith on 12/10/2024 Iron (Fe) deficiency anemia (Chronic) Internal hemorrhoids (Acute ~08/2024) [facility] Colonoscopy Hiatal hernia (Chronic ~08/2024) small [facility] EGD White coat syndrome without hypertension (Acute) Crohn disease (Chronic ~2023) . . .of both large and small intestine with intestinal obstruction. Managed by Gastro @ [facility] Medical History Oropeza angioma (~11/2024) Multiple benign nevi (~11/2024) Surgical History H/O esophagogastroduodenoscopy (09/16/24) [facility] Dr Tian. Sm hiatal hernia. Bx to f/u Celiac. 09/26/24-[facility] [place]-bx's of the small intestine were normal; there was no evidence of celiac disease present. H/O colonoscopy (~05/10/24) [facility] for suspected Chrons disease of the small bowel. pathology pending. bx's- no evidence of dysplasia per final dx per [facility] report. 09/16/24-[facility]-Dr Tian-no specimens colllected-see report Family History Maternal Cousin Crohn disease Social History Smoking/Tobacco Use Status: Never Second Hand Exposure: No Smoking risk assessment performed?: Yes Alcohol Intake: never Drug use: Never Substance use type: does not use Adopted: No Caregiver/Support person: No Foster care: No Household members: family Housing: apartment Number of Children: 0 number of grandchildren: 0 Communication Needs: None Education Level: high school Do you need help understanding health information?: Rarely Pets and animals: No Sexually active: No Do you think of yourself as: straight/heterosexual Current gender identity: male What is your relationship status?: never How often do you talk on the phone with friends or family?: once per week How often do you get together with friends or relatives?: never Do you belong to any clubs or organized social groups?: no Panel score (0-1 are the most socially isolated patients): 0 What type of physical activity do you participate in: none Duration: < 15 minutes/day Marlene/Denominational: None Special marlene needs: No Seatbelt use: always Helmet use: Yes Drive intox or ride w/intox 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 Meds Allergies and Home Medications Allergies Allergy/AdvReac Type Severity Reaction Status Date / Time No Known Allergies Allergy Verified 01/14/25 09:39 Home Medications ?Medication ?Instructions ?Recorded ?Confirmed ?Type folic acid 1 mg tablet 1 mg PO DAILY Anemia 4 01/14/25 History multivitamin (Multiple Vitamins 1 tab PO DAILY Crohn's Disease 04/29/24 01/14/25 History tablet) infliximab 100 mg intravenous 900 mg IV Q4W 10/17/24 0 01/14/25 History solution acetaminophen 325 mg tablet See Rx Instructions PO .CO MPLEX PRN 12/18/24 01/14/25 History duloxetine 40 mg capsule,delayed 40 mg PO .nightly 08/1301/14/25 History release ferrous sulfate 325 mg (65 mg 325 mg PO .QOD Anemia 01/14/25 History iron) tablet food supplemt, lactose-reduced See Rx Instructions PO QID 12/18/24 01/14/25 History (Ensure High Protein oral liquid) loperamide 2 mg capsule 2 mg PO TID 12/18/24 5 History Exam Narrative Exam Narrative: General: Patient appears appropriate for age, thin, alert and oriented x 3 and in no acute distress. He is very talkative and smiling during his interview. HEENT: Normocephalic, eyes with pupils equal and reactive to light symmetrically, extraocular movement intact and sclera anicteric. Oropharynx with moist mucosa and fair dentition. Teeth are slightly misaligned. Neck: Supple without JVD. Back: Normal posture without CVA tenderness. Lungs: Clear to oscillation percussion with no focalizing rales or rhonchi. Good aeration. Heart: Regular rate and rhythm with no murmurs gallops appreciated. Abdomen: Scaphoid contour, soft and nontender to palpation with no palpable hepatosplenomegaly. No tenderness or guarding. No rebound. Patient does have a functioning colostomy bag in his lower abdomen. Bowel sounds positive in all quadrants. Genta/rectal: Exam deferred. Extremity: Without clubbing, cyanosis or pitting edema. Peripheral pulses intact. Skin: Normal color, warm and dry. Neuro: Cranial nerves II through XII gross intact, no focalized motor deficits and no tremor. Psych: Slightly anxious affect but normal appearing mood with patient soft- spoken and smiling during his interview. He does express severe depression recently. No abnormal thought processes. Remote and recent memory intact. Results Labs 03/02/25 04:28 03/02/25 04:28 Labs: Laboratory Results - last 24 hr 03/01/25 21:46 WBC 5.90 RBC 5.74 Hgb 15.7 Hct 46.8 MCV 82 MCH 27.4 MCHC 33.5 RDW 15.2 H Plt Count 266 MPV 8.7 Immature Gran % 0.3 Neutrophils % 74.9 Lymphocytes % 20.2 Monocytes % 4.1 Eosinophils % 0.2 Basophils % 0.3 Nucleated RBC % 0.0 Absolute Neutrophils 4.42 Absolute Lymphocytes 1.19 L Absolute Monocytes 0.24 Absolute Eosinophils 0.01 Absolute Basophils 0.02 PT 10.2 INR 1.0 APTT 23.6 Sodium 139 Potassium 3.6 Chloride 102 Carbon Dioxide 22.8 Anion Gap 14.2 H BUN 18 Creatinine 0.9 Est GFR (CKD-EPI 2020) 123.84 Glucose 130 H Calcium 9.3 Total Bilirubin 2.1 H AST 127 H ALT 208 H Alkaline Phosphatase 115 Total Protein 9.5 H Albumin 4.6 Lipase 20 Salicylates < 2.8 Acetaminophen 94 H Ethyl Alcohol < 3.0 Last Vital Signs Temp 37.3 C 03/01/25 21:37 Pulse 109 H 03/01/25 21:37 Resp 16 03/01/25 21:37 BP 130/97 H 03/01/25 21:37 Pulse Ox 100 03/01/25 21:37 Time Spent Time spent with Patient: >75 minutes Time was spent: preparing to see the patient(eg.review tests), obtaining and/or reviewing separately otained hiistory, ordering medications,tests, procedures, referring, communicating with other health home care aide, indepentently interpreting results, counseling the patient and care coordination
[2025-03-02] VITALS (75 sets, daily range): BP systolic 95–139; BP diastolic 46–101; PULSE 64–136; RESP 10–32; TEMP 36.7–37.4; O2SAT 95–100
[2025-03-02 00:25] LABS: COVID-19 PCR Negative (Negative); RSV PCR Negative (Negative)
--- NOTE | 2025-03-02 02:03 | W.PC.ACHO ---
Registration Status: ADM IN Primary Language: Preferred Language: ED Information & Data Chief Complaint OD/Poison 03/02/25 00:52 Chief Complaint OD/Poison 03/01/25 22:06 Other Complaint PsychEval 03/01/25 21:37 Triage Note 21g aka 42 tab 100mg APAP, 03/01/25 21:37 SI. taken at 3 pm, now vomiting. Medical / Surgical History (Last Reviewed 03/01/25 @ 23:02 by Edward Fernandez) Oropeza angioma (~11/2024) Multiple benign nevi (~11/2024) (Last Reviewed 03/01/25 @ 23:02 by Edward Fernandez) H/O esophagogastroduodenoscopy (09/16/24) H/O colonoscopy (~05/10/24) Most Recent Vital Signs Temperature 36.7 C 03/02/25 00:50 Pulse 102 H 03/02/25 00:50 Pulse 102 H 03/02/25 00:50 Respiratory Rate 20 03/02/25 00:52 Respiratory Effort Normal 03/02/25 00:52 Respiratory Depth Normal 03/02/25 00:52 Respiratory Pattern Irregular 03/02/25 00:52 Blood Pressure 167/111 H 03/01/25 22:16 Blood Pressure Mean 132 03/01/25 22:16 Pulse Oximetry 100 03/02/25 00:50 Pain Level 0 03/01/25 21:37 Allergies No Known Allergies Allergy (Verified 01/14/25 09:39) IV IV Catheter Type [] Saline Lock IV Catheter Type [Left Forearm Saline Lock ] IV Catheter Gauge [] 18 IV Catheter Gauge [Left 18 Forearm] Diet Orders Category Date Time Status Regular/Normal [DIET] Nutrition 03/02/25 Breakfast Active Diagnostics 03/02/25 03/02/25 03/02/25 Range/Units 13:19 05:35 01:19 WBC Pending (4.4-10.8) 10^3/uL RBC Pending (4.36-5.78) 10^6/uL Hgb Pending (13.5-17.5) g/dL Hct Pending (40.0-50.0) % MCV Pending (80-95) fL MCH Pending (27.0-33.0) pg MCHC Pending (32.0-36.0) % RDW Pending (11.8-14.1) % Plt Count Pending (130-400) 10^3/uL MPV Pending (8.0-11.0) fL Immature Gran % % Neutrophils % % Lymphocytes % % Monocytes % % Eosinophils % % Basophils % % Nucleated RBC % (0.0-0.3) % Absolute Neutrophils (1.2-6.7) 10^3/uL Absolute Lymphocytes (1.2-3.4) 10^3/uL Absolute Monocytes (0.1-0.8) 10^3/uL Absolute Eosinophils (0.0-0.7) 10^3/uL Absolute Basophils (0.0-0.2) 10^3/uL PT Pending (9.1-11.1) sec INR Pending (0.9-1.1) APTT (20.6-30.2) sec Sodium Pending (136-145) mmol/L Potassium Pending (3.5-5.1) mmol/L Chloride Pending (98-107) mmol/L Carbon Dioxide Pending (21.0-32.0) mmol/L Anion Gap Pending (3-11) mmol/L BUN Pending (7-18) mg/dL Creatinine Pending (0.70-1.30) mg/dL Est GFR (CKD-EPI 2020) Pending (mL/min/1.73m2) Glucose Pending (74-106) mg/dL Calcium Pending (8.5-10.1) mg/dL Total Bilirubin Pending Pending (0.2-1.0) mg/dL Conjugated Bilirubin Pending Pending AST Pending Pending (15-37) U/L ALT Pending Pending (16-63) U/L Alkaline Phosphatase Pending Pending (46-116) U/L Total Protein Pending Pending (6.4-8.2) g/dL Albumin Pending Pending (3.4-5.0) g/dL Lipase (<78) U/L TSH Pending Salicylates (<2.8) mg/dL Acetaminophen Pending Pending (10-30) ug/mL Ethyl Alcohol (<10) mg/dL COVID-19 Source SARS-CoV-2 (PCR) (Negative) Influenza Type A (PCR) (Negative) Influenza Type B (PCR) (Negative) RSV (PCR) (Negative) 03/01/25 03/01/25 Range/Units 23:32 21:46 WBC 5.90 (4.4-10.8) 10^3/uL RBC 5.74 (4.36-5.78) 10^6/uL Hgb 15.7 (13.5-17.5) g/dL Hct 46.8 (40.0-50.0) % MCV 82 (80-95) fL MCH 27.4 (27.0-33.0) pg MCHC 33.5 (32.0-36.0) % RDW 15.2 H (11.8-14.1) % Plt Count 266 (130-400) 10^3/uL MPV 8.7 (8.0-11.0) fL Immature Gran % 0.3 % Neutrophils % 74.9 % Lymphocytes % 20.2 % Monocytes % 4.1 % Eosinophils % 0.2 % Basophils % 0.3 % Nucleated RBC % 0.0 (0.0-0.3) % Absolute Neutrophils 4.42 (1.2-6.7) 10^3/uL Absolute Lymphocytes 1.19 L (1.2-3.4) 10^3/uL Absolute Monocytes 0.24 (0.1-0.8) 10^3/uL Absolute Eosinophils 0.01 (0.0-0.7) 10^3/uL Absolute Basophils 0.02 (0.0-0.2) 10^3/uL PT 10.2 (9.1-11.1) sec INR 1.0 (0.9-1.1) APTT 23.6 (20.6-30.2) sec Sodium 139 (136-145) mmol/L Potassium 3.6 (3.5-5.1) mmol/L Chloride 102 (98-107) mmol/L Carbon Dioxide 22.8 (21.0-32.0) mmol/L Anion Gap 14.2 H (3-11) mmol/L BUN 18 (7-18) mg/dL Creatinine 0.9 (0.70-1.30) mg/dL Est GFR (CKD-EPI 2020) 123.84 (mL/min/1.73m2) Glucose 130 H (74-106) mg/dL Calcium 9.3 (8.5-10.1) mg/dL Total Bilirubin 2.1 H (0.2-1.0) mg/dL Conjugated Bilirubin AST 127 H (15-37) U/L ALT 208 H (16-63) U/L Alkaline Phosphatase 115 (46-116) U/L Total Protein 9.5 H (6.4-8.2) g/dL Albumin 4.6 (3.4-5.0) g/dL Lipase 20 (<78) U/L TSH Salicylates < 2.8 (<2.8) mg/dL Acetaminophen 94 H (10-30) ug/mL Ethyl Alcohol < 3.0 (<10) mg/dL COVID-19 Source Nasopharynx SARS-CoV-2 (PCR) Negative (Negative) Influenza Type A (PCR) Negative (Negative) Influenza Type B (PCR) Negative (Negative) RSV (PCR) Negative (Negative) Intake and Output - 24 Hour Total 03/01/25 21:27 thru 03/01/25 21:37 Weight 68.492 kg Falls Risk Assessment History of Falls No History 03/02/25 00:52 Contributing Factors No Factors 03/02/25 00:52 Ambulatory Aids Independent 03/02/25 00:52 Tubes/Lines None 03/02/25 00:52 Gait Evaluation No gait disturbance 03/02/25 00:52 Cognition No cognitive impairment 03/02/25 00:52 Fall Total Score 0 03/02/25 00:52 Level of Risk Standard/Low Risk 03/02/25 00:52 Problems (Last Reviewed 03/01/25 @ 23:02 by Edward Fernandez) Intentional overdose (Acute) Intentional acetaminophen overdose (Acute) Depression (Chronic) Iron (Fe) deficiency anemia (Chronic) Crohn disease (Chronic ~2023) v v v v v v v v v Sending and/or Receiving Nurses: Please use comment section below to note any information pertinent to the patient hand-off not included above. Information / Comments: Report received from: Nyla Marks all questions answered: yes
[2025-03-02] MEDS: DULoxetine 20 MG CAP 40 MG PO ×2 (02:54→20:02)
[2025-03-02 03:14] LABS: Glucose Negative (Negative)
[2025-03-02 03:18] LABS: RBC Negative HPF (0-2); WBC Negative HPF (0-5)
[2025-03-02 03:19] LABS: C & S Indicated? No
[2025-03-02 03:26] LABS: Cannabinoids THC Negative (Negative); METHADONE URINE SCREEN Negative (Negative)
[2025-03-02 04:35] LABS: HCT 40.0 % (40.0-50.0); HGB 13.9 g/dL (13.5-17.5); MCH 28.0 pg (27.0-33.0); MCHC 34.8 % (32.0-36.0); MCV 81 fL (80-95); MPV 9.2 fL (8.0-11.0); Platelet Count 244 10^3/uL (130-400); RBC 4.96 10^6/uL (4.36-5.78); RDW 15.0 % (11.8-14.1); RDW-SD 44.1 fL; WBC 9.46 10^3/uL (4.4-10.8)
[2025-03-02 05:02] LABS: Anion Gap 8.7 mmol/L (3-11); BUN 13 mg/dL (7-18); CO2 24.3 mmol/L (21.0-32.0); Calcium 8.8 mg/dL (8.5-10.1); Chloride 105 mmol/L (98-107); Estimated GFR 139.97 (mL/min/1.73m2); Glucose 112 mg/dL (74-106); Potassium 3.7 mmol/L (3.5-5.1); Sodium 138 mmol/L (136-145)
[2025-03-02 05:12] LABS: ALT 209 U/L (16-63); AST 103 U/L (15-37); Albumin 3.6 g/dL (3.4-5.0); Alkaline Phosphatase 88 U/L (46-116); Bilirubin, Direct 0.4 mg/dL (0.0-0.2); Bilirubin, Total 2.4 mg/dL (0.2-1.0); TSH 1.27 uIU/mL (0.36-3.74); Total Protein 7.9 g/dL (6.4-8.2)
[2025-03-02 05:13] LABS: Acetaminophen < 2 ug/mL (10-30)
[2025-03-02 05:38] LABS: INR 1.1 (0.9-1.1); Prothrombin Time 11.4 sec (9.1-11.1)
--- NOTE | 2025-03-02 08:33 | INITIAL_ITS ---
Date of service: 03/02/25 Time of Service: 16:58 Care Management Initial Assmt Initial Assessment Reason for Hospitalization: Intentional Acetaminophen OD, Depression Functional Status/Living Situation Patient Presentation: Doug is being closely monitored and treated in the ICU following an intentional acetaminophen overdose, poison control is following. When CM met with him this afternoon he was lying in bed, polite and easy engage in conversation. Patient describes his feeling using a metophor of being in a tower that is on fire, stating, its not that I want to jump, but it's getting too hot. He confirmed ingesting 42 acetaminophen tablets and reported feeling relief afterward because he felt he was doing something about the way he feels. He endorses feeling lonely with limited support at home. He has friends but they are unavailable. After our talk, he met with [facility] and wishes to pursue inpatient psych treatment. [facility] plans to see him daily and referrals will go out when he is medically clear. CM will follow. Town of Residence: [place] Resides with: Parent (Britni Rojo) Significant Other/Family: Local Natural Supports: Mother Employment Status: Unemployed Instrumental Activities of Daily Living (ADLs): Independent Physical Functioning/Mobility Assistive Device: None Advance Directives Advance Directives: Do you have an Advance Directive: N , 09:54 AD On File at [facility]: N 04/11/24, 09:54 Date Asked 03/01/25 Today, 03:47 AD Date Reviewed COLST On File at [facility] COLST Date Scanned Code Status Resuscitation Status Full Code Insurance Coverage/Financial Issues Insurance: Medicaid of [place] - [id number] Care Team Visit Care Team Role Provider Type Edmundo Solorzano MD MD [facility] STAFF PHYSICIAN Ramón Birmingham DO Primary Care Provider OSTEOPATHIC DOCTOR Charles Chacon MD Emergency Provider [facility] STAFF PHYSICIAN Edward Fernandez Admit Provider NON-[facility] STAFF PHYSICIAN Attending Provider Discharge Potential Discharge Needs: Consult Consult Services Needed: Other ([facility]) Anticipated Barriers to Discharge: None Identified Patient/Family Education Needs: Review discharge instructions, discuss Ask Me Three Transportation: Other (Dependent on dispo) Plan: Patient is awaiting inpatient psychiatric treatment once medically cleared. [facility] will continue to evaluate patient and send referrals. CM will follow. Social Determinants of Health Screening Social Determinants of health last assessed in clinic: 03/02/25 Will the Patient Participate in the Screening?: Yes Do you worry about having a steady place to live?: yes What is your living situation today?: I have housing today, but am worried about losing it Problems where you live: no known problems In the past 12 months, have you had to go without electric, gas, oil or water in your home?: no 1. Within the past 12 months, we worried whether our food would run out before we got money to buy more.: Never true 2. Within the past 12 months, the food we bought just didn't last and we didn't have money to get more.: Never true Has lack of transportation kept you from medical appointments or from doing things needed for daily living?: no Has anyone in your life made you feel unsafe or unsupported?: no How hard is it for you to pay for the very basics like food, housing, medical care, and heating? Would you say it is:: Somewhat hard Do you want help finding or keeping work or a job?: I do not need or want help If for any reason you need help with day-to-day activities such as bathing, preparing meals, shopping, managing finances, etc., do you get the help you need?: I don?t need any help How often do you feel lonely or isolated from those around you?: Always Do you speak a language other than Maori at home?: No Does the patient want assistance with any of the above?: Yes Health Related Social Needs Health related social needs: housing instability, housed, with risk of homelessness (Z59.811), problems related to housing/economic circumstances (Z59.89) and feeling lonely/isolated (Z60.8) Health related social needs details: has ostomy from last year [facility] All Active Problems Intentional overdose (Acute) Intentional acetaminophen overdose (Acute) Depression (Chronic) Moderate protein-calorie malnutrition (Acute) Ureteral stent present (Acute) Placed at [facility] 12/10/2024 S/P partial colectomy (Acute) performed at [facility] [place] on 12/10/[address] Purvi Keith with coloproctostomy Ileostomy status (Acute) at [facility] [place] performed by Dr. Purvi Keith on 12/10/2024 Iron (Fe) deficiency anemia (Chronic) Internal hemorrhoids (Acute ~08/2024) [facility] [place] Colonoscopy Hiatal hernia (Chronic ~08/2024) small [facility] [place] EGD White coat syndrome without hypertension (Acute) Crohn disease (Chronic ~2023) . . .of both large and small intestine with intestinal obstruction. Managed by Gastro @ [facility] [place] Medical History Oropeza angioma (~11/2024) Multiple benign nevi (~11/2024) Surgical History H/O esophagogastroduodenoscopy (09/16/24) [facility] [place] Dr Tian. Sm hiatal hernia. Bx to f/u Celiac. 09/26/24-per [facility] doc letter to pt-bx's of the small intestine were normal; there was no evidence of celiac disease present. H/O colonoscopy (~05/10/24) [facility] [place] for suspected Chrons disease of the small bowel. pathology pending. bx's- no evidence of dysplasia per final dx per [facility] [place] report. 09/16/24-[facility] [place] Tian-no specimens colllected-see report Family History Maternal Cousin Crohn disease Social History Smoking/Tobacco Use Status: Never Second Hand Exposure: No Smoking risk assessment performed?: Yes Alcohol Intake: never Drug use: Never Substance use type: does not use Adopted: No Caregiver/Support person: No Foster care: No Household members: family Housing: apartment Number of Children: 0 number of grandchildren: 0 Communication Needs: None Education Level: high school Do you need help understanding health information?: Rarely Pets and animals: No Sexually active: No Do you think of yourself as: straight/heterosexual Current gender identity: male What is your relationship status?: never How often do you talk on the phone with friends or family?: once per week How often do you get together with friends or relatives?: never Do you belong to any clubs or organized social groups?: no Panel score (0-1 are the most socially isolated patients): 0 What type of physical activity do you participate in: none Duration: < 15 minutes/day Marlene/Sikhism: None Special marlene needs: No Seatbelt use: always Helmet use: Yes Drive intox or ride w/intox 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
[2025-03-02] MEDS: Multivitamin TAB 1 TAB PO (08:50)
[2025-03-02] MEDS: Ferrous Sulfate 325 MG TAB PO (08:50)
[2025-03-02] MEDS: Folic Acid 1 MG TAB PO (08:50)
--- NOTE | 2025-03-02 08:52 | PDOC.CMSAFE ---
Date of service: 03/02/25 Time of Service: 08:52 Care Management Safety Plan Status Status: Voluntary Reason for Wait Reason for Wait: Inpatient Admission Safety Plan Safety Plan: Doug is being closely monitored and treated in the ICU following an intentional acetaminophen overdose, poison control is following. Per report, patient has endorsed SI, identifying current stressors related to re-entering a non-disabled life and workforce after his planned diverting ileostomy reversal this fall. [facility] evaluation is needed, patient currently has a 1:1 sitter. 1630: [facility] met with patient this afternoon. They are pursuing inpatient psych treatment for him and will plan to see him daily. Referrals will go out when he is medically clear. CM will follow. CM will respond to ED to assess patient after patient has been medically cleared and assessed by screener. If screener deems patient meets criteria for psychiatric stabilization CM will facilitate interdepartmental huddle with [facility] screener for safety planning considerations and meet with patient to review [facility] policy and safety plan, establish individual wishes for treatment and maintain patient rights. In the interim; please note safety plan below to guide patient care while awaiting further assessment in the ICU.? SAFETY PLAN: 1. Will remain on suicide precautions and in paper clothes.? 2. Will remain in room under direct supervision of one-on-one staff at all times provided by BRIANNE, INDUSTRIAL HYGIENE ENGINEER laundromat worker. 3. May have paper cups, plates, finger foods as well as a cardboard spoon with which to eat meals. 4. Follow [facility] Management of the Admitted Behavioral Health Patient policy. 5. Comfort bath system or shower, supervised, at RN discretion. 6. No personal belongings 7. Visito(s): limited to patients mother whom is identified as his primary support, at RN discretion. 8. Phone contact: Incoming/Outgoing calls using [facility] phone at RN discretion. 9.?Due to VOLUNTARY status,?if patient wishes to leave [facility], staff will contact [facility] Crisis Screener ([phone]) and On-Call Floor Manager ([phone]) as soon as possible. In the event of elopement, notify [facility] Police ([phone]). ? If deemed appropriate for inpatient psychiatric care, safety plan will be established with patient, and care team, to adhere to patient goals, identify restrictions based on behavioral status, address nutrition, and determine allowed personal belongings, tools for hygiene and personal care. As well plan will determine level of activity including ambulation, level of supervision, visitors, and determine privileges based on level of acuity, behaviors and level of engagement by patient.
[2025-03-02] MEDS: Normal Saline Flush 10 ML SYR IVP ×2 (08:54→20:03)
[2025-03-02] MEDS: LORazepam 20 MG/10 ML VIAL IVP ×3 (09:05→18:03)
[2025-03-02] MEDS: Loperamide 2 MG CAP PO (13:21)
--- NOTE | 2025-03-02 19:57 | PDOC.MHCN ---
Date of service: 03/02/25 Time of Service: 15:58 PHQ-9 Over the last 2 weeks, how often have you been bothered by any of the following problems? 1. Little interest or pleasure in doing things: more than half the days 2. Feeling down, depressed, or hopeless: nearly every day 3. Trouble falling or staying asleep, or sleeping too much: more than half the days 4. Feeling tired or having little energy: more than half the days 5. Poor appetite or overeating: several days 6. Feeling bad about yourself - or that you are a failure or have let yourself and your family down: more than half the days 7. Trouble concentrating on things, such as reading the newspaper or watching television: nearly every day 8. Moving or speaking so slowly that other people could have noticed? - Or the opposite - being so fidgety or restless that you have been moving around a lot more than usual: not at all 9. Thoughts that you would be better off or of hurting yourself in some way: nearly every day Total score: 18 If you checked off any problems, how difficult have these problems made it for you to do your work, take care of things at home, or get along with other people?: extremely difficult Source: Developed by Drs. Ayden Kline, Dennise Fernandez, Coy Rousseau and colleagues, with an educational zack from [employer]. Suicide Severity Rate CSSRS Have you wished you were or wished you could go to sleep and not wake up?: Yes Have you actually had any thoughts of killing yourself?: Yes CSSRS2 Have you been thinking about how you might do this?: Yes Have you had these thoughts and had some intention of acting on them?: Yes Have you started to work out or worked out the details of how to kill yourself? Do you intend to carry out this plan?: Yes CSSRS3 Have you ever done anything, started to do anything or prepared to do anything to end your life?: Yes CSSRS4 Was this within the past three months?: Yes Screening Score Total Score: 8 Screening: Positive Mental Health Emergency Note Release [facility] release signed:: Yes Reason for Visit The client presented to [facility] via ambulance to the ICU after an intentional overdose on Tylenol. The client is not known to [facility] or this clinician prior to this assessment. The client denies ever being hospitalized for his mental health in the past. In the last 2 weeks has the pt presented for ES prior to today?: No Client Information Client is: New Well Housed: Yes Non Suicidal Self Injury Current: No History: No Safety Risk/Harm to Self or Others Current Ideation to Harm Self or Others: Yes to self. Intent: yes, has intent. Plan: no.does not have a plan. History of suicide attempt: yes,history of suicide attempt reported. Details of previous suicide attempt: The client took 42 500mg pills of Tylenol on 03/01. Risk: Does risk to harm exist?: yes. Access to means: Yes. Types of Means: Firearms, Other weapons and Medication. Counseling provided: No Duty to warn indicated: No Asssessment/Mental Status Appearance: Disheveled Attitude: Cooperative and Friendly Behavior: Unremarkable Speech: Normal Affect: Cogruent with mood Mood: Anxious and Other (The client reports his mood as neutral ) Thought process: Goal directed Hallucinations: No Delusions: No Attention: Unremarkable Perception: Not impaired Orientation: Fully orientated Memory: Intact Insight: Fair Judgement: Fair Neurovegetative Symptoms Sleep: No change Appetitie: No change Interests: Decrease Energy: Decrease Libido: Not applicable Additional Issues: Assaultive/Threatening Behavior: No Medical Concerns: Yes Client engaged in active self harm w/weapon: No Threatening to run away: No Child reported abuse/neglect: No Voluntarily presenting for services: Yes Domestic violence is a concern: No Extreme Psychosis or extreme behavior is present: No Impression The client is a 24 year old single biological male who resides with his mother in [place], [place]. The client presents to the [facility] ICU after taking 42 500mg Tylenol pills . The client is seen in blue paper scrubs sitting in his hospital bed with a disheveled appearance. Affect is appears to be congruent with mood. Speech is normal range. Client is friendly and cooperative; they report their mood as neutral and anxious. Thought process appears to be goal directed. The client denied visual and auditory hallucinations. There are no delusions observed by this clinician. Cognitive assessment reveals orientation to person and place and time. The client reports towards the end of November he had a bowel resection and had 27 inches of his small intestines removed. The client stated he had to had this done due to Crohn's disease. The surgery was a success and the client states his luis has been getting better. 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 The client states now he has more time to focus on his living situation and how Isaiah has nothing to do for people his age. The client states when he was in bed sick he did not focus on it too much. The client shared how he spoke to his psychiatrist on Monday about all of this and her response was tough shit and that's the way the world works. The client states although he appreciates her bluntness he did not feel supported and this really triggered him wanting to harm himself. The client reports not having many in person friends, but all online friends due to moving around so much. The client shares feelings of not having a support system. The client states his mother is great moral support but he feels like she does not understand him. The client reports with all of this on Thursday 03/01 he took 42 500mg Tylenol pills. The client states it was not with the intention to as he did a lot of research prior and liver failure did not sound fun. The client goes on to say he did this as a cry for help and felt excited/happy when taking the pills. The client reports 6 hours after taking the pills he started puking nonstop and called 911 to be brought to [facility]. The client reported around 1am on 03/02 he was stabilized and had stopped puking. The client states with this he feels like he needs terminal operator help. The client denied HI and NSSI with no intent and plan. The client reports current SI with his intent rated a 6 out of 10. The client denies any current plan at time of assessment. The client scored a 18/27 on the PHQ-9 and a 6/6 on the CSSRS. The client was agreeable to await for voluntary inpatient treatment at [facility] as he feels the need for treatment for his mental health. Plan/Disposition Recommended Disposition: Hospitalization facilities contacted. Plan: The client will await voluntary inpatient treatment at [facility] and be assessed once a day by emergency services until placement is secured. Reports/communication Outcome discussed with: ED/Personnel
[2025-03-02 21:09] LABS: INR 1.1 (0.9-1.1); PTT Activated 25.0 sec (20.6-30.2); Prothrombin Time 11.4 sec (9.1-11.1)
[2025-03-02 21:11] LABS: ALT 164 U/L (16-63); AST 45 U/L (15-37); Albumin 3.5 g/dL (3.4-5.0); Alkaline Phosphatase 85 U/L (46-116); Bilirubin, Direct 0.3 mg/dL (0.0-0.2); Bilirubin, Total 1.8 mg/dL (0.2-1.0); Total Protein 7.7 g/dL (6.4-8.2)
[2025-03-02 21:14] LABS: Acetaminophen < 2 ug/mL (10-30)
--- NOTE | 2025-03-02 22:47 | PGE_ITS ---
Date of Service Date of service: 03/02/25 Time of Service: 08:00 Assessment and Plan Assessment and plan (1) Intentional acetaminophen overdose: Start date: 03/01/25 Status: Acute Assessment and plan: Tylenol overdose being treated with ACAC with guidance from poison control 3 stages of ACAC completed, will complete 16 hour 3rd stage with LFT testing 2 hours prior to completion Patient denies suicidal ideation at this time (2) Depression: Status: Chronic Assessment and plan: Telepsychiatry has evaluated the patient and is following (3) Crohn disease: Status: Chronic Assessment and plan: Status post left hemicolectomy with diverting ileostomy with plans to reanastomose his intestine and not have a ileostomy. This actually is make him anxious because then he would not be disabled and able to return to the workforce. He will follow-up with [facility] gastroenterology. (4) Iron (Fe) deficiency anemia: Status: Chronic Assessment and plan: Continue iron supplement. This most likely is from chronic loss with his Crohn's disease. The patient is thin and possibly malnourished as well. Subjective Subjective Interval history since last seen: Mr. Membreno is comfortable in bed. Telepsychiatry has evaluated him and will follow. Poison control is advising. Exam Narrative Exam Narrative: General: This is a pleasant man in no distress HEENT: Normocephalic, atraumatic CV: RRR Resp: CTAB Abd: soft, NTND MSK: voluntary motion x4 Neuro: awake, alert, no focal deficits Objective Last Vital Signs Temp 37.0 C 03/02/25 20:00 Pulse 129 H 03/02/25 21:30 Resp 12 03/02/25 21:30 BP 95/46 L 03/02/25 21:00 Pulse Ox 97 03/02/25 21:30 Laboratory Results - last 24 hr 03/01/25 03/02/25 03/02/25 23:32 02:10 04:28 WBC 9.46 RBC 4.96 Hgb 13.9 Hct 40.0 MCV 81 MCH 28.0 MCHC 34.8 RDW 15.0 H Plt Count 244 MPV 9.2 PT 11.4 H INR 1.1 APTT Sodium 138 Potassium 3.7 Chloride 105 Carbon Dioxide 24.3 Anion Gap 8.7 BUN 13 Creatinine 0.6 L Est GFR (CKD-EPI 2020) 139.97 Glucose 112 H Calcium 8.8 Total Bilirubin 2.4 H Conjugated Bilirubin 0.4 H AST 103 H ALT 209 H Alkaline Phosphatase 88 Total Protein 7.9 Albumin 3.6 TSH 1.27 Urine Color Yellow Urine Clarity Clear Urine pH 5.0 Ur Specific [place] 1.025 Urine Protein 30 H Urine Ketones >=160 H Urine Blood Negative Urine Nitrite Negative Urine Bilirubin Negative Urine Urobilinogen 0.2 Ur Leukocyte Esterase Negative Urine RBC Negative Urine WBC Negative Ur Epithelial Cells Negative Urine Crystals Negative Urine Bacteria Negative Urine Casts Negative Urine Mucus Negative Ur Culture Indicated? No Urine Glucose Negative Urine Opiates Screen Negative Urine Methadone Screen Negative Acetaminophen < 2 Ur Barbiturates Screen Negative Ur Tricyclics Screen Negative Ur Amphetamines Screen Negative U Benzodiazepines Scrn Negative Urine Cocaine Screen Negative Ur THC Screen Negative COVID-19 Source Nasopharynx SARS-CoV-2 (PCR) Negative Influenza Type A (PCR) Negative Influenza Type B (PCR) Negative RSV (PCR) Negative 03/02/25 20:30 WBC RBC Hgb Hct MCV MCH MCHC RDW Plt Count MPV PT 11.4 H INR 1.1 APTT 25.0 Sodium Potassium Chloride Carbon Dioxide Anion Gap BUN Creatinine Est GFR (CKD-EPI 2020) Glucose Calcium Total Bilirubin 1.8 H Conjugated Bilirubin 0.3 H AST 45 H ALT 164 H Alkaline Phosphatase 85 Total Protein 7.7 Albumin 3.5 TSH Urine Color Urine Clarity Urine pH Ur Specific [place] Urine Protein Urine Ketones Urine Blood Urine Nitrite Urine Bilirubin Urine Urobilinogen Ur Leukocyte Esterase Urine RBC Urine WBC Ur Epithelial Cells Urine Crystals Urine Bacteria Urine Casts Urine Mucus Ur Culture Indicated? Urine Glucose Urine Opiates Screen Urine Methadone Screen Acetaminophen < 2 Ur Barbiturates Screen Ur Tricyclics Screen Ur Amphetamines Screen U Benzodiazepines Scrn Urine Cocaine Screen Ur THC Screen COVID-19 Source SARS-CoV-2 (PCR) Influenza Type A (PCR) Influenza Type B (PCR) RSV (PCR) PAWSS Have you Been Recently Intoxicated or Drunk Within the Last 30 days?: No Have you Ever Experienced Previous Episodes of Alcohol Withdrawal?: No Have you ever Experienced Withdrawal Seizures?: No Have you ever Experienced Delirium Tremens(DT)s?: No Have you ever undergone Alcohol Rehabilitation Treatment (i.e, inpt ot outpatien t treatment programs)?: No Have you ever Experienced Blackouts?: No Have you ever Combined Alcohol with other Downers within the last 90 days?: No Have you ever Combined Alcohol with any other Substance of Abuse during the last 90 days?: No Positive Blood Alcohol level on Presentation? [PCS.BAL]: No Evidence of Increased Autonomic Activity (i.e. HR>120, tremor, sweating, agitation, nausea)?: No Result: 0 Time Spent with Patient Time Spent with Patient: 25-34 minutes Time was spent: preparing to see the patient(eg.review tests), obtaining and/or reviewing separately otained hiistory, ordering medications,tests, procedures, referring, communicating with other health weekend caregiver, indepentently interpreting results, counseling the patient and care coordination
[2025-03-03] VITALS (29 sets, daily range): BP systolic 124–133; BP diastolic 79–86; PULSE 59–106; RESP 11–25; TEMP 36.8–37.2; O2SAT 96–100
[2025-03-03 06:57] LABS: HCT 41.2 % (40.0-50.0); HGB 13.8 g/dL (13.5-17.5); MCH 27.7 pg (27.0-33.0); MCHC 33.5 % (32.0-36.0); MCV 83 fL (80-95); MPV 9.4 fL (8.0-11.0); Platelet Count 219 10^3/uL (130-400); RBC 4.99 10^6/uL (4.36-5.78); RDW 15.2 % (11.8-14.1); RDW-SD 45.6 fL; WBC 4.07 10^3/uL (4.4-10.8)
[2025-03-03 07:14] LABS: Anion Gap 9.0 mmol/L (3-11); BUN 13 mg/dL (7-18); CO2 26.0 mmol/L (21.0-32.0); Calcium 8.6 mg/dL (8.5-10.1); Chloride 103 mmol/L (98-107); Estimated GFR 139.97 (mL/min/1.73m2); Glucose 87 mg/dL (74-106); INR 1.1 (0.9-1.1); Potassium 3.7 mmol/L (3.5-5.1); Prothrombin Time 11.3 sec (9.1-11.1); Sodium 138 mmol/L (136-145)
[2025-03-03 07:15] LABS: PTT Activated 26.4 sec (20.6-30.2)
[2025-03-03 07:35] LABS: Acetaminophen < 2 ug/mL (10-30)
[2025-03-03] MEDS: Folic Acid 1 MG TAB PO (08:25)
[2025-03-03] MEDS: Loperamide 2 MG CAP PO ×2 (08:25→15:10)
[2025-03-03] MEDS: Multivitamin TAB 1 TAB PO (08:25)
[2025-03-03] MEDS: LORazepam 20 MG/10 ML VIAL IVP ×2 (08:25→19:57)
[2025-03-03] MEDS: Normal Saline Flush 10 ML SYR IVP ×2 (08:39→19:58)
--- NOTE | 2025-03-03 11:32 | CMSP_ITS ---
Date of service: 03/03/25 Time of Service: 11:32 Care Management Safety Plan Status Status: Voluntary Reason for Wait Reason for Wait: Medical Clearance Safety Plan Safety Plan: Care Management Safety Plan CM will respond to ED to assess patient after patient has been medically cleared and assessed by screener. If screener deems patient meets criteria for psychiatric stabilization CM will facilitate interdepartmental huddle with [facility] screener for safety planning considerations and meet with patient to review [facility] policy and safety plan, establish individual wishes for treatment and maintain patient rights. In the interim; please note safety plan below to guide patient care while awaiting further assessment in the ICU.? SAFETY PLAN: 1. Will remain on suicide precautions and in paper clothes.? 2. Will remain in room under direct supervision of one-on-one staff at all times provided by BRIANNE, OUTSIDE PLANT ENGINEER ice cream vendor. 3. May have paper cups, plates, finger foods as well as a cardboard spoon with which to eat meals. 4. Follow [facility] Management of the Admitted Behavioral Health Patient policy. 5. Comfort bath system or shower, supervised, at RN discretion. 6. No personal belongings 7. Visito(s): limited to patients mother whom is identified as his primary support, at RN discretion. 8. Phone contact: Incoming/Outgoing calls using [facility] phone at RN discretion. 9.?Due to VOLUNTARY status,?if patient wishes to leave [facility], staff will contact [facility] Crisis Screener ([phone]) and On-Call Escalator Mechanic ([phone]) as soon as possible. In the event of elopement, notify [facility] Police ([phone]). ? If deemed appropriate for inpatient psychiatric care, safety plan will be established with patient, and care team, to adhere to patient goals, identify restrictions based on behavioral status, address nutrition, and determine allowed personal belongings, tools for hygiene and personal care. As well plan will determine level of activity including ambulation, level of supervision, visitors, and determine privileges based on level of acuity, behaviors and level of engagement by patient.
--- NOTE | 2025-03-03 12:06 | MHPN_ITS ---
Date of service: 03/03/25 Time of Service: 12:06 Mental Health Emergency Note Release [facility] release signed:: Yes Reason for Visit The client is not known to [facility] or this clinician. They denied previous hospitalizations per review of his previous note. He is being reassessed today following an intentional overdose of Tylenol. The client is assessed in ICU. In the last 2 weeks has the pt presented for ES prior to today?: Unknown Impression The client is a 23-year-old, single, male who resides with his mother in [place]. He is currently not employed but is looking for employment. All underrepresented categories were honored during this assessment. The client presents lying in bed watching TV. He muted the TV upon arrival. The client presented as upbeat and positive. He is fully engaged in the assessment denying SI and HI. He reported that the thought of going inpatient to help him stabilized has lessened the thoughts of wanting to . He reported he feels as though he got adiquate sleep and his appetite is normal. This clinician informed him that [facility] has shown interest in him and once we know there is a bed we will update him. This clinician also informed him he can wear his own clothes while at [facility] and so if he wanted to call someone to gather some clothing for him that would be in his best interest. He inquired about what inpatient looks like and we had discussions around this. He was appreciative of this input. Plan/Disposition Recommended Disposition: Hospitalization facilities contacted. Plan: [facility] requested updated medical to show he is medically cleared so they can review for admission. Care Management will send this once completed. Person reported agreement to plan: Yes Reports/communication Outcome discussed with: ED/Personnel
[2025-03-03 12:42] LABS: ALT 132 U/L (16-63); AST 30 U/L (15-37); Albumin 3.4 g/dL (3.4-5.0); Alkaline Phosphatase 81 U/L (46-116); Bilirubin, Direct 0.3 mg/dL (0.0-0.2); Bilirubin, Total 1.8 mg/dL (0.2-1.0); Total Protein 7.6 g/dL (6.4-8.2)
[2025-03-03 13:03] LABS: Acetaminophen < 2 ug/mL (10-30)
--- NOTE | 2025-03-03 13:17 | PGE_ITS ---
Date of Service Date of service: 03/03/25 Time of Service: 13:17 Assessment and Plan Assessment and plan (1) Intentional acetaminophen overdose: Start date: 03/01/25 Status: Acute Assessment and plan: Tylenol overdose being treated with ACAC with guidance from poison control 3 stages of ACAC completed, will complete 16 hour 3rd stage LFTs show good response, normalizing, RN will touch base with poison control, but should be done with treatment his afternoon. enoxaprin for DVT prophylaxis (2) Depression: Status: Chronic Assessment and plan: Telepsychiatry has evaluated the patient Patient denies suicidal ideation at this time Plan to d/c to psych placement once NAC done. Continue home duloxetine (3) Crohn disease: Status: Chronic Assessment and plan: Status post left hemicolectomy with diverting ileostomy with plans to reanastomose his intestine and not have a ileostomy. He feels good physically after surgery and on biologic agents, Crohns in remission, but this actually is make him anxious because after his surgery he would not be disabled and will be expected to return to the workforce. He will follow-up with [facility] gastroenterology. Subjective Subjective Patient reports: no new complaints, feels better, tolerating a regular diet and voiding w/o difficulty; denies nausea, vomiting, shortness of breath or fever Interval history since last seen: Feeling well physically. He doesn't feel safe going home, but no active SI now. He would like to get some help and agrees to inpatient plancement when he is ready. Exam Narrative Exam Narrative: General: A&O x 4, no distress CV: RRR Resp: CTAB Abd: soft, NTND Neuro: awake, alert, no focal deficits Psych: nl mood and affect, nl thought process, good insight Objective Last Vital Signs Temp 37.2 C 03/03/25 08:21 Pulse 91 H 03/03/25 08:21 Resp 25 H 03/03/25 12:00 BP 127/86 03/03/25 08:21 Pulse Ox 99 03/03/25 08:21 Laboratory Results - last 24 hr 03/02/25 03/03/25 03/03/25 20:30 05:45 12:07 WBC 4.07 L RBC 4.99 Hgb 13.8 Hct 41.2 MCV 83 MCH 27.7 MCHC 33.5 RDW 15.2 H Plt Count 219 MPV 9.4 PT 11.4 H 11.3 H INR 1.1 1.1 APTT 25.0 26.4 Sodium 138 Potassium 3.7 Chloride 103 Carbon Dioxide 26.0 Anion Gap 9.0 BUN 13 Creatinine 0.6 L Est GFR (CKD-EPI 2020) 139.97 Glucose 87 Calcium 8.6 Total Bilirubin 1.8 H 1.8 H Conjugated Bilirubin 0.3 H 0.3 H AST 45 H 30 ALT 164 H 132 H Alkaline Phosphatase 85 81 Total Protein 7.7 7.6 Albumin 3.5 3.4 Acetaminophen < 2 < 2 < 2 03/03/25 03/03/25 15:00 20:00 WBC RBC Hgb Hct MCV MCH MCHC RDW Plt Count MPV PT INR APTT Sodium Potassium Chloride Carbon Dioxide Anion Gap BUN Creatinine Est GFR (CKD-EPI 2020) Glucose Calcium Total Bilirubin Cancelled Conjugated Bilirubin Cancelled AST Cancelled ALT Cancelled Alkaline Phosphatase Cancelled Total Protein Cancelled Albumin Cancelled Acetaminophen Cancelled PAWSS Have you Been Recently Intoxicated or Drunk Within the Last 30 days?: No Have you Ever Experienced Previous Episodes of Alcohol Withdrawal?: No Have you ever Experienced Withdrawal Seizures?: No Have you ever Experienced Delirium Tremens(DT)s?: No Have you ever undergone Alcohol Rehabilitation Treatment (i.e, inpt ot outpatient treatment programs)?: No Have you ever Experienced Blackouts?: No Have you ever Combined Alcohol with other Downers within the last 90 days?: No Have you ever Combined Alcohol with any other Substance of Abuse during the last 90 days?: No Positive Blood Alcohol level on Presentation? [PCS.BAL]: No Evidence of Increased Autonomic Activity (i.e. HR>120, tremor, sweating, agitation, nausea)?: No Result: 0 Time Spent with Patient Time Spent with Patient: 35-49 minutes Time was spent: preparing to see the patient(eg.review tests), obtaining and/or reviewing separately otained hiistory, ordering medications,tests, procedures, referring, communicating with other health home care associate, indepentently interpreting results, counseling the patient and care coordination
--- NOTE | 2025-03-03 13:27 | PDOC.CMPRO ---
Date of service: 03/03/25 Time of Service: 13:27 Care Management Progress Note Progress Note Text Progress Note Text: Doug was sitting up in bed, playing on his phone, when CM met with him today. He was very pleasant and polite. He stated that he was really anxious to tell his mom what was going on with him, but feels better having told her. He has met with [facility], and referrals are pending. Doug is nearing medical clearance, and the most updated clinicals have been sent to [place]. Discharge Potential Discharge Needs: Other (Doug is hoping to have a direct admit to an inpatient psychiatric treatment center.) Anticipated Barriers to Discharge: Bed availability Patient/Family Education Needs: Review discharge instructions, discuss Ask Me Three Transportation: Other (cecil) Plan: Anticipate that Doug will transfer to an inpatient psych treatment facility once he is medically stable. He will f/u with the facility staff and continue per his plan of care. He will transfer via transportation set up by [facility]. CM will continue to follow. Social Determinants of Health Screening Social Determinants of health last assessed in clinic: 03/03/25 Will the Patient Participate in the Screening?: Yes Do you worry about having a steady place to live?: yes What is your living situation today?: I have housing today, but am worried about losing it Problems where you live: no known problems In the past 12 months, have you had to go without electric, gas, oil or water in your home?: no 1. Within the past 12 months, we worried whether our food would run out before we got money to buy more.: Don't know/refused 2. Within the past 12 months, the food we bought just didn't last and we didn't have money to get more.: Don't know/refused Has lack of transportation kept you from medical appointments or from doing things needed for daily living?: no Has anyone in your life made you feel unsafe or unsupported?: no How hard is it for you to pay for the very basics like food, housing, medical care, and heating? Would you say it is:: Somewhat hard Do you want help finding or keeping work or a job?: I do not need or want help If for any reason you need help with day-to-day activities such as bathing, preparing meals, shopping, managing finances, etc., do you get the help you need?: I don?t need any help How often do you feel lonely or isolated from those around you?: Always Do you speak a language other than Romanian at home?: No Does the patient want assistance with any of the above?: Yes Health Related Social Needs Health related social needs: housing instability, housed, with risk of homelessness (Z59.811), problems related to housing/economic circumstances (Z59.89) and feeling lonely/isolated (Z60.8) Health related social needs details: has ostomy from last year
[2025-03-03] MEDS: DULoxetine 20 MG CAP 40 MG PO (19:57)
[2025-03-04 05:15] VITALS: TEMP 37.1
[2025-03-04 05:19] VITALS: PULSE 62; O2SAT 97
[2025-03-04 05:20] VITALS: BP 110/70; PULSE 74
[2025-03-04] MEDS: Multivitamin TAB 1 TAB PO (07:36)
[2025-03-04] MEDS: Folic Acid 1 MG TAB PO (07:36)
[2025-03-04] MEDS: Loperamide 2 MG CAP PO (07:36)
[2025-03-04] MEDS: Ferrous Sulfate 325 MG TAB PO (07:36)
[2025-03-04] MEDS: Normal Saline Flush 10 ML SYR IVP (07:37)
[2025-03-04] MEDS: Enoxaparin 40 MG/0.4 ML SYR SC (07:48)
[2025-03-04 09:53] VITALS: BP 126/84; PULSE 104
[2025-03-04 09:54] VITALS: BP 126/84; PULSE 62; RESP 17; TEMP 37.4; O2SAT 96
--- NOTE | 2025-03-04 10:23 | PDOC.CMSAFE ---
Date of service: 03/04/25 Time of Service: 10:23 Care Management Safety Plan Status Status: Voluntary Reason for Wait Reason for Wait: Inpatient Admission Safety Plan Safety Plan: VOLUNTARY FOR INPATIENT PSYCHIATRIC STABILIZATION.? Patient is appropriate in all interactions since arriving at [facility]; Pt has demonstrated appropriate coping and communication skills, has articulated his or her needs and concerns and is fully engaged during staff interactions. Safety plan has been established with patient, and care team, to adhere to patient goals, identify restrictions based on behavioral status, address nutrition, and determine allowed personal belongings, tools for hygiene and personal care. Determine level of activity including ambulation, level of supervision, visitors, and determine privileges based on behaviors and level of engagement by pt. SAFETY PLAN: 1. Will remain on suicide precautions, in paper clothes 2. Will remain in room under direct supervision of one-on-one staff at all times provided by [employer]; BRIANNE, DIRECTOR OF OPERATIONS FOR THERAPY die storage worker. 3. May have paper cups, plates, finger foods as well as a cardboard spoon with which to eat meals. 4. Follow [facility] Management of the Admitted Behavioral Health Patient policy. 5. Comfort bath system, shower permitted with escort at RN discretion. 6. Personal belongings-soft items permitted at RN discretion. 7. Visitors-none at this time. 8. Activities: soft cart items approved per RN discretion. 9.? Bathroom privileges with escort in the ICU. 10. Phone: limited to cordless phone at RN discretion. Due to VOLUNTARY status, if patient wishes to leave [facility], staff will contact [facility] Crisis Screener ([phone]) and On-Call Clinical Staff Anesthesiologist ([phone]) as soon as possible. In the event of elopement, notify [facility] Police ([phone]).
[2025-03-04] MEDS: hydrOXYzine HCL 25 MG TAB PO (12:18)
--- NOTE | 2025-03-04 14:18 | DSE_ITS ---
Date of service: 03/04/25 Time of Service: 14:18 DS: Diagnosis Discharge Diagnosis (1) Intentional acetaminophen overdose: Status: Acute (2) Depression: Status: Chronic (3) Crohn disease: Status: Chronic Discharge Plan Disposition Patient Disposition: Psychiatric [facility] Discharge Details Reason For Visit: Intentional Acetaminophen Overdose, Depression Admit Date/Time: 03/01/25 23:25 Admit Provider: Edward Fernandez Attending Provider: Edward Fernandez Primary Care Provider: Ramón [facility] Course Hospital Course: 24 yo M with history of Crohn disease s/p bowel resection and ileostomy and depression who presented 03/01 about 10 hours after taking 21g of acetaminophen. He started vomiting prior to presenation and called for help. He was started on B-pnjosa-ogfwzocn protocol and was treated thorugh 03/03 afternoon. His LFTs were initially tBili of 2.1, AST 127, ALT 208. These improved with NAC therapy. INR and alkphos remained normal. He was medically cleared by 03/03 evening. Labs showed his previous anemia had resolved. His weight had increased 6-8kg since August 2024 with better Crohns control. He stated he did research on acetaminophen overdose and knew it was a painful way to but also that he had time to change his mind after taking the overdose. He agreed he needed help, and stated he didn't really want to but felt like his current situation was in crisis. His Crohns has been well controlled since his surgery on infliximab therapy, and he expressed anxiety about his pending ileostomy reversal and pressure to return to productive work force as a trigger for his mental health crisis. He was taking his duloxetine but felt he needed something more. He did get prn lorazepam, then hydroxyzine for anxiety. He consented for voluntary inpatient treatment for his depression. He was transferred to [facility] for psychiatric care. Home Meds and New Rx's Prescriptions: No Action folic acid 1 mg tablet 1 mg PO DAILY Patient Comments: Start date 12/21/2023 multivitamin [Multiple Vitamins] Tablet 1 tab PO DAILY Patient Comments: Start date 12/21/2023 infliximab 100 mg recon soln 900 mg IV Q4W acetaminophen 325 mg tablet See Rx Instructions PO .COMPLEX PRN Rx Instructions: 3 tablets every 6 hours orally PRN; loperamide 2 mg capsule 2 mg PO TID duloxetine 40 mg capsule,delayed release(DR/EC) 40 mg PO .nightly ferrous sulfate 325 mg (65 mg iron) tablet 325 mg PO .QOD Patient Comments: Per [facility] Ensure High Protein Liquid See Rx Instructions PO QID Rx Instructions: 237mL orally four times a day; Discharge Instructions Activity:: Activity as Tolerated Equipment/Supplies:: No Equipment Needed Diet:: As Tolerated Discharge Orders Discharge Orders: Discharge Order (Routine); Ordered 03/04/25 Ordered By: Rishabh Acharya DS: Summary Time Spent with Patient providing and/or coordinating discharge services: Greater than 30 minutes Status at Discharge Functional status at discharge: independent ambulation Overall status at discharge: patient is back to baseline Mental Status: mental status grossly normal Speech and Movement: speech and movement normal Mood: congruent mood Affect: normal affect Quality:SDOH Health Related Social Needs: Health related social needs risk of homeless house/eco n circumstance lonely/isolated Health related social needs details has ostomy from Health related social needs details: has ostomy from last year Exam Narrative Exam Narrative: General: A&O x 4, no distress HEENT: MMM, no icterus CV: RRR Resp: CTAB Abd: soft, NTND Neuro: awake, alert, no focal deficits Psych: nl mood and affect, nl thought process, good insight Psych Mental Status: mental status grossly normal Speech and Movement: speech and movement normal Mood: congruent mood Affect: normal affect DS: Data Vitals/I&O Vitals and I&O: Vital Signs Temperature 37.4 C 03/04/25 09:54 Temperature Source Temporal Artery Scan 03/04/25 09:54 Pulse 62 03/04/25 09:54 Pulse 78 03/03/25 19:46 Respiratory Rate 17 03/04/25 09:54 Respiratory Effort Normal 03/02/25 01:06 Respiratory Depth Normal 03/02/25 00:52 Respiratory Pattern Irregular 03/02/25 00:52 Blood Pressure 126/84 03/04/25 09:54 Blood Pressure Mean 98 03/04/25 09:54 Blood Pressure Position Supine 03/02/25 01:06 Pulse Oximetry 96 03/04/25 09:54 Oxygen Delivery Method Room Air 03/04/25 09:54 Oxygen Flow Rate 0 03/04/25 09:54 Pain Level 0 03/03/25 13:42 Intake & Output 03/03/25 03/04/25 03/04/25 23:59 11:59 23:59 Intake Total 1563.3 / 1933.3 200 / 420 220 / 420 Output Total 107 / 2075 1500 / 1650 150 / 1650 Balance 488.3 / -141.7 -1300 / -1230 70 / -1230 Weight 66.1 kg Intake: IV 1043.3 / 1053.3 Oral 520 / 880 200 / 420 220 / 420 Output: Urine 350 / 650 500 / 500 Stool 725 / 1425 1000 / 1150 150 / 1150 Other: Urine Color Yellow Yellow Urine Appearance Clear Clear Urine Odor Normal None Stool Characteristics Liquid Foamy Data Completed and Pending Labs on day of discharge: Labs from last 24 hours 03/04/25 13:40 Total Bilirubin Pending Conjugated Bilirubin Pending AST Pending ALT Pending Alkaline Phosphatase Pending Total Protein Pending Albumin Pending PFSH All Active Problems Intentional overdose (Acute) Intentional acetaminophen overdose (Acute) Depression (Chronic) Moderate protein-calorie malnutrition (Acute) Ureteral stent present (Acute) Placed at [facility] 12/10/2024 S/P partial colectomy (Acute) performed at [facility] on 12/10/[address] Purvi Keith with coloproctostomy Ileostomy status (Acute) at [facility] performed by Dr. Purvi Keith on 12/10/2024 Iron (Fe) deficiency anemia (Chronic) Internal hemorrhoids (Acute ~08/2024) [facility] Colonoscopy Hiatal hernia (Chronic ~08/2024) small [facility] EGD White coat syndrome without hypertension (Acute) Crohn disease (Chronic ~2023) . . .of both large and small intestine with intestinal obstruction. Managed by Gastro @ [facility] Medical History Oropeza angioma (~11/2024) Multiple benign nevi (~11/2024) Surgical History H/O esophagogastroduodenoscopy (09/16/24) [facility] Dr Tian. Sm hiatal hernia. Bx to f/u Celiac. 09/26/24-per [facility] [place] doc letter to pt-bx's of the small intestine were normal; there was no evidence of celiac disease present. H/O colonoscopy (~05/10/24) [facility] for suspected Chrons disease of the small bowel. pathology pending. bx's- no evidence of dysplasia per final dx per [facility] report. 09/16/24-[facility]-Dr Tian-no specimens colllected-see report Family History Maternal Cousin Crohn disease Social History Smoking/Tobacco Use Status: Never Second Hand Exposure: No Smoking risk assessment performed?: Yes Alcohol Intake: never Drug use: Never Substance use type: does not use Adopted: No Caregiver/Support person: No Foster care: No Household members: family Housing: apartment Number of Children: 0 number of grandchildren: 0 Communication Needs: None Education Level: high school Do you need help understanding health information?: Rarely Pets and animals: No Sexually active: No Do you think of yourself as: straight/heterosexual Current gender identity: male What is your relationship status?: never How often do you talk on the phone with friends or family?: once per week How often do you get together with friends or relatives?: never Do you belong to any clubs or organized social groups?: no Panel score (0-1 are the most socially isolated patients): 0 What type of physical activity do you participate in: none Duration: < 15 minutes/day Marlene/Zoroastrianism: None Special marlene needs: No Seatbelt use: always Helmet use: Yes Drive intox or ride w/intox jinriksha driver: No Time Spent with Patient Time Spent with Patient: <45 minutes Time was spent: preparing to see the patient(eg.review tests), obtaining and/or reviewing separately otained hiistory, ordering medications,tests, procedures, referring, communicating with other health insurance healthcare consultant, indepentently interpreting results, counseling the patient and care coordination
--- NOTE | 2025-03-04 14:22 | CMDISCH_ITS ---
Date of service: 03/04/25 Time of Service: 14:22 LACE Index Scoring Tool Questions: Length of Stay (in days): 3 Was the patient admitted via the E.D.?: Yes E.D. Visits: 2 Answers: Total Score: 8 Risk of Readmission: Low Risk Care Management Discharge Plan Reason for Hospitalization: intentional Tylenol overdose Discharge Plan: Doug is being transferred to [facility] for inpatient psychiatric treatment. He will f/u with the facility providers and continue per his plan of care. Doug is very pleased to start moving forward. Services Needed at Discharge: Psychiatric Facility ([facility]) SDOH Health Related Social Needs: Health related social needs risk of homeless house/eco n circumstance lonely/isolated Health related social needs details has ostomy from [facility] year Health related social needs details: has ostomy from last year MH Services (Omit if N/A) Current MH Services: None Referred to Internal [facility] (ED embedded) case management coordinator?: Yes Disposition Disposition: [place] Transport via of: [facility] ([facility]
[2025-03-04 14:38] VITALS: BP 128/85; PULSE 83; RESP 18; TEMP 36.9; O2SAT 97
[2025-03-04 14:40] LABS: ALT 131 U/L (16-63); AST 42 U/L (15-37); Albumin 3.6 g/dL (3.4-5.0); Alkaline Phosphatase 91 U/L (46-116); Bilirubin, Total 1.6 mg/dL (0.2-1.0); Total Protein 8.0 g/dL (6.4-8.2)
[2025-03-04 19:49] LABS: Bilirubin, Direct 0.3 mg/dL (0.0-0.2)
== END 2025-03-04 15:18 | DRG 918 ==
LOC: ER 23:31 → ICU 03-02 01:12
PROVIDERS: Family Medicine; Admitting Provider Family Medicine; Emergency Provider General Practice; PCP Family Medicine; Responsible Provider Family Medicine; Visit Provider Family Medicine
DX: T39.1X2A Poisoning by 4-Aminophenol derivatives, intentional self-harm, initial encounter (principal); K50.00 Crohn's disease of small intestine without complications; Z59.811 Housing instability, housed, with risk of homelessness; F32.A Depression, unspecified; D50.0 Iron deficiency anemia secondary to blood loss (chronic); Z93.2 Ileostomy status; Z90.49 Acquired absence of other specified parts of digestive tract; K64.8 Other hemorrhoids; K44.9 Diaphragmatic hernia without obstruction or gangrene
CPT/HCPCS: 00123; 36415; 80048; 80053; 80076; 80307; 83690; 85027; 87637; 93005; 96127; 96361; 96374; 99285; J1650; 80320; 80329; 81003; 81015; 84443; 85025; 85610; 85730; 93010; 99223; 99231; 99232; 99238; J0132; J2060; J2405; J7060

== ENCOUNTER 2025-03-13 00:46 | Outpatient (CLI) | payer MEDICAID, SELFPAY ==
--- NOTE | 2025-03-04 18:47 | PDOC.MHPN2 ---
Date of service: 03/04/25 Time of Service: 11:35 Suicide Severity Rate CSSRS Have you wished you were or wished you could go to sleep and not wake up?: Yes Have you actually had any thoughts of killing yourself?: Yes CSSRS2 Have you been thinking about how you might do this?: Yes Have you had these thoughts and had some intention of acting on them?: Yes Have you started to work out or worked out the details of how to kill yourself? Do you intend to carry out this plan?: Yes CSSRS4 Was this within the past three months?: Yes Screening Score Total Score: 6 Screening: Positive Mental Health Emergency Note Release [facility] release signed:: No Reason for Visit Intentional overdose In the last 2 weeks has the pt presented for ES prior to today?: Unknown Client Information Client is: New Well Housed: Yes Non Suicidal Self Injury History: No Safety Risk/Harm to Self or Others Current Ideation to Harm Self or Others: Yes to self. Intent: yes, has intent. Plan: yes,has a plan. History of suicide attempt: yes,history of suicide attempt reported. Details of previous suicide attempt: Unknown Risk: Does risk to harm exist?: yes. Access to means: Yes. Types of Means: Medication and Other. Counseling provided: Yes Risk: Moderate Risk Duty to warn indicated: No Asssessment/Mental Status Appearance: Well groomed Attitude: Cooperative and Friendly Behavior: Unremarkable Speech: Normal Affect: Cogruent with mood Mood: Elevated and Anxious Thought process: Goal directed and Poverty of content Hallucinations: No evidence Delusions: No evidence Attention: Unremarkable Perception: Not impaired Orientation: Fully orientated Memory: Intact Insight: Good Judgement: Fair Neurovegetative Symptoms Sleep: No change Appetitie: No change Interests: No change Energy: No change Libido: No change Additional Issues: Assaultive/Threatening Behavior: No Medical Concerns: No Client engaged in active self harm w/weapon: No Threatening to run away: No Child reported abuse/neglect: No Voluntarily presenting for services: Yes Domestic violence is a concern: No Extreme Psychosis or extreme behavior is present: No Impression Client is a 24-year-old male, single and unemployed, currently residing with family in [place], [place]. He is new to [facility] and this Clinician. During the in-person reassessment at [facility], following an overdose on nymq-val-xjgsluv medication with intent to , Client presented as cooperative, maintaining good eye contact and displaying goal-oriented behavior. He did not express remorse for his actions; instead, he made alarming and veiled threats about his expectations regarding inpatient treatment outcomes. Clinician provided counseling and factual information concerning the potential duration and exposure to assistance available during inpatient treatment, emphasizing that meaningful change unfolds over time and that progress begins with the days invested in treatment. Client acknowledged a moderate risk to himself but denied any risk to others or to the community. He articulated a sense of accountability, though he did not elaborate further on this statement. His expressed risk level is contingent on receiving higher-level 'in-person' supports, community connections, and opportunities for small group interactions. Additionally, Client conveyed fears about returning to the community 'in a few days without feeling connected. ' Plan/Disposition Recommended Disposition: Hospitalization facilities contacted. Person reported agreement to plan: Yes Facilities contacted if Applicable [facility] Accepted, Accepted/transfer pending. Information Sent to [place]: Referral, Reports/communication Outcome discussed with: ED/Personnel
[2025-03-13] MEDS: Normal Saline Flush 10 ML SYR IVP (09:52)
[2025-03-13] MEDS: Acetaminophen 325 MG TAB 650 MG PO (09:55)
[2025-03-13] MEDS: Loratidine 10 MG TAB PO (09:55)
[2025-03-13 10:24] VITALS: BP 127/77; PULSE 77; RESP 16; TEMP 36.7; O2SAT 100
[2025-03-13] MEDS: NORMAL SALINE IVPB (10:25)
[2025-03-13] MEDS: INFLIXIMAB DYYB IVPB (10:25)
[2025-03-13 11:27] VITALS: BP 127/74; PULSE 70; RESP 16; TEMP 37.6; O2SAT 97
[2025-03-19 18:12] LABS: Infliximab 29 mcg/mL
== END 2025-03-13 00:47 | disposition home or self-care (01) ==
LOC: INF 00:46
PROVIDERS: PCP Family Medicine; Visit Provider Family Medicine
DX: K50.812 Crohn's disease of both small and large intestine with intestinal obstruction (principal)
CPT/HCPCS: 00123; 36415; 82397; 96365; Q5103

== ENCOUNTER 2025-04-10 00:19 | Outpatient (CLI) | payer MEDICAID, SELFPAY ==
[2025-04-10] MEDS: Acetaminophen 325 MG TAB 650 MG PO (12:13)
[2025-04-10] MEDS: Normal Saline Flush 10 ML SYR IVP (12:13)
[2025-04-10] MEDS: Loratidine 10 MG TAB PO (12:13)
[2025-04-10 12:30] VITALS: BP 119/69; PULSE 83; RESP 19; TEMP 36.8; O2SAT 99
[2025-04-10] MEDS: INFLIXIMAB DYYB IVPB (12:39)
[2025-04-10] MEDS: NORMAL SALINE IVPB (12:39)
[2025-04-10 13:00] VITALS: BP 121/65; PULSE 72; RESP 19; TEMP 36.6; O2SAT 100
[2025-04-14 03:08] LABS: Infliximab 24 mcg/mL
== END 2025-04-10 00:20 | disposition home or self-care (01) ==
LOC: INF 00:19
PROVIDERS: Internal Medicine Gastroenterology; PCP Family Medicine; Visit Provider Family Medicine
DX: K50.812 Crohn's disease of both small and large intestine with intestinal obstruction (principal)
CPT/HCPCS: 36415; 82397; 96365; Q5103

== ENCOUNTER 2025-05-08 00:50 | Outpatient (CLI) | payer MEDICAID, SELFPAY ==
[2025-05-08 09:59] VITALS: BP 114/72; PULSE 84; RESP 18; TEMP 36.4; O2SAT 95
[2025-05-08] MEDS: Acetaminophen 325 MG TAB (10:06)
[2025-05-08] MEDS: Loratidine 10 MG TAB (10:07)
[2025-05-08] MEDS: Normal Saline Flush 10 ML SYR IVP (10:07)
[2025-05-08] MEDS: NORMAL SALINE IVPB (10:13)
[2025-05-08] MEDS: INFLIXIMAB DYYB IVPB (10:13)
[2025-05-08 10:30] VITALS: BP 113/60; PULSE 77; RESP 18; TEMP 36.8; O2SAT 99
[2025-05-08 11:30] VITALS: BP 122/74; PULSE 77; RESP 18; TEMP 36.4; O2SAT 99
[2025-05-14 01:43] LABS: Infliximab 30 mcg/mL
== END 2025-05-08 00:51 | disposition home or self-care (01) ==
PROVIDERS: PCP Family Medicine; Visit Provider Internal Medicine Gastroenterology
DX: K50.812 Crohn's disease of both small and large intestine with intestinal obstruction (principal)
CPT/HCPCS: 36415; 82397; 96365; Q5103

== ENCOUNTER 2025-06-05 00:45 | Outpatient (CLI) | payer MEDICAID, SELFPAY ==
[2025-06-05 11:16] VITALS: BP 117/76; PULSE 70; RESP 18; TEMP 36.3; O2SAT 100
[2025-06-05] MEDS: INFLIXIMAB DYYB IVPB (11:35)
[2025-06-05] MEDS: NORMAL SALINE IVPB (11:35)
[2025-06-05] MEDS: Acetaminophen 325 MG TAB 650 MG PO (11:37)
[2025-06-05] MEDS: Normal Saline Flush 10 ML SYR IVP (11:38)
[2025-06-05] MEDS: Loratidine 10 MG TAB PO (11:38)
[2025-06-05 12:34] LABS: Alkaline Phosphatase 63 U/L (46-116); C-Reactive Protein < 0.50 mg/dL (<=0.50); Magnesium 1.9 mg/dL (1.6-2.6); Total Protein 7.3 g/dL (5.7-8.2)
[2025-06-05 12:35] LABS: ALT 33 U/L (10-49); AST 22 U/L (<34); Albumin 4.0 g/dL (3.2-5.0); Bilirubin, Direct 0.4 mg/dL (<=0.3)
[2025-06-05 12:36] LABS: Bilirubin, Total 1.6 mg/dL (0.2-1.2)
[2025-06-05 12:40] LABS: Iron 112 ug/dL (65-175)
[2025-06-05 13:08] VITALS: BP 107/67; PULSE 87; RESP 18; TEMP 36.4; O2SAT 98
[2025-06-05 13:39] LABS: HCT 39.8 % (40.0-50.0); HGB 13.4 g/dL (13.5-17.5); MCH 29.5 pg (27.0-33.0); MCHC 33.7 % (32.0-36.0); MCV 88 fL (80-95); RBC 4.54 10^6/uL (4.36-5.78); WBC 3.52 10^3/uL (4.4-10.8)
[2025-06-05 13:40] LABS: MPV 9.9 fL (8.0-11.0); Platelet Count 254 10^3/uL (130-400); RDW 11.9 % (11.8-14.1); RDW-SD 38.1 fL
== END 2025-06-05 00:46 | disposition home or self-care (01) ==
PROVIDERS: Internal Medicine Gastroenterology; PCP Family Medicine; Visit Provider Family Medicine
DX: E83.42 Hypomagnesemia (principal); D50.9 Iron deficiency anemia, unspecified; K50.812 Crohn's disease of both small and large intestine with intestinal obstruction
CPT/HCPCS: 36415; 80076; 85027; 96365; 83540; 83735; 86140; Q5103